=== PATIENT | male | born 1960 | race Two or more races ===

== ENCOUNTER 2024-02-04 14:53 | Outpatient (AMB) | payer MEDICAID, SELFPAY ==
[2024-02-04 15:25] VITALS: BP 142/81; PULSE 67; RESP 18; TEMP 36.6; O2SAT 97; BMI 31.5
--- NOTE | 2024-02-04 15:25 | ORTHONT_ITS ---
Vital signs 02/04/24 15:25 Height 1.57 m Height Method Stated Weight 77.734 kg Weight Measurement Method Standing Scale BMI 31.5 BP 142/81 H Blood Pressure Source Automatic Cuff Blood Pressure Location Right Upper Arm Position Sitting Respiration 18 Pulse 67 Pulse Source Monitor Temp 97.9 F Temp Source Temporal Artery Scan Pulse Oximetry (%) 97 Oxygen Delivery Method Room Air Med/Allergies Allergies & Medications Allergies No Known Allergies Allergy (Verified 02/04/24 15:31) Medication Reconciliation ibuprofen 800 mg tablet 800 mg PO TID PRN Pain 03/23/20 [History Confirmed 02/04/24] lisinopril 10 mg tablet 10 mg PO QDAY 03/23/20 [History Confirmed 02/04/24] polyethylene glycol 3350 17 gram/dose oral powder (Miralax) 17 g PO BID PRN constipation #510 grams 03/23/20 [Rx Confirmed 02/04/24] phenazopyridine 200 mg tablet (Pyridium) 200 mg PO TID PRN pain 6 doses #6 tabs 10/05/20 [Rx Confirmed 02/04/24] sulfamethoxazole 800 mg-trimethoprim 160 mg tablet (Bactrim DS) 1 tab PO Q12H #20 tabs 10/05/20 [Rx Confirmed 02/04/24] ciprofloxacin HCl 500 mg tablet 500 mg PO Q12H #20 tabs 03/01/21 [Rx Confirmed 02/04/24] ibuprofen 800 mg tablet 800 mg PO TID PRN fever or pain #30 tabs 06/21/21 [Rx Confirmed 02/04/24] albuterol sulfate 90 mcg/actuation aerosol inhaler 2 puff inhalation QID PRN shortness of breath or wheezing #8.5 grams 06/24/21 [Rx Confirmed 02/04/24] acetaminophen 650 mg tablet,extended release 650 mg PO Q8H PRN fever or pain #30 tabs 02/17/22 [Rx Confirmed 02/04/24] albuterol sulfate 90 mcg/actuation aerosol inhaler 2 puff inhalation Q6H PRN cough / wheezing #6.7 grams 02/17/22 [Rx Confirmed 02/04/24] ibuprofen 600 mg tablet 600 mg PO Q8H PRN fever or pain #30 tabs 02/17/22 [Rx Confirmed 02/04/24] inhalational spacing device (Aerochamber MV spacer) #1 ea 02/17/22 [Rx Confirmed 02/04/24] ipratropium bromide 21 mcg (0.03 %) nasal spray 2 spray intranasal BID #30 mL 02/17/22 [Rx Confirmed 02/04/24] promethazine-DM 6.25 mg-15 mg/5 mL oral syrup 5 ml PO Q6H PRN cough #120 mL 02/17/22 [Rx Confirmed 02/04/24] naproxen 500 mg tablet 500 mg PO BID PRN pain #14 tabs 06/19/22 [Rx Confirmed 02/04/24] ibuprofen 600 mg tablet 600 mg PO Q6H #30 tabs 07/16/22 [Rx Confirmed 02/04/24] ibuprofen 800 mg tablet 800 mg PO TID PRN pain #30 tabs 09/07/22 [Rx Confirmed 02/04/24] naproxen 500 mg tablet 500 mg PO BID PRN pain #30 tabs 12/06/22 [Rx Confirmed 02/04/24] ofloxacin 0.3 % eye drops 2 drp ophthalmic (eye) QID #5 mL 07/16/23 [Rx Confirmed 02/04/24] Subjective Visit Visit for: follow up visit, knee and injections Immunization / Flu Flu Vaccine in the Last 12 Months: No Flu Vaccine Exclusion Criteria: No Exclusion Criteria History of Present Illness Chief complaint: F/U KNEE INJECTIONS Patient is a pleasant 62-year-old Male with left knee pain and severe left knee arthritis. This pain has been ongoing for 1 year. The films he has are nonweightbearing. The pain is starting to affect his quality life and happiness. He wants avoid surgery and wants injections at this time. Personal History Occupation: SIMULATION SOFTWARE ENGINEER Red flag PMH: none Pain Pain level (0-10): 7 Pain duration: ALL DAY Pain location: outside (lateral) and anterior Pain quality: sharp, dull and aching Pain timing: increases with activity Associated signs & symptoms: none Ambulatory data Ambulatory device: none Treatments Improvement with previous injections: No Improvement with PT: No Improvement with NSAIDS: n/a Review of Systems Review of Systems: All systems negative unless otherwise noted in HPI. Exam Exam Patient is in no acute distress and is cooperative with the examination today. Breathing is nonlabored. Patient has a normal mood and affect. Bilateral extremities were evaluated and demonstrates sensation intact to light touch. Palpable pedal pulses are present. No significant edema is present. Bilateral hips were examined. The patient has no pain with log roll of the hips. Internal rotation to 30 degrees and external rotation to 30 degrees is painless. Negative FADIR. Right knee was examined today. The right knee is in reasonable alignment. Range of motion from 0-120 degrees. Knee is stable to varus and valgus as well as AP translation with <5mm. Patient has a negative McMurrays. There is no pain with patellofemoral compression and no crepitus noted. The knee is nontender to palpation. Left knee was examined today. The left knee is in [varus] alignment. Range of motion from [0-115] degrees. Knee is stable to varus and valgus as well as AP translation with <5mm. Patient has a [negative] McMurrays. There is [no] pain with patellofemoral compression and [no] crepitus noted. The knee is [tender] to palpation [medially]. X-rays demonstrate severe joint space narrowing medially. Assessment and Plan Problem List (1) Arthritis of left knee: Status: Acute Plan: Patient is a pleasant 62-year-old male with severe left knee arthritis. We discussed nonoperative and operative options. He would like injections. Recommend knee cortisone injections as patient would like to proceed with conservative treatment at this time. The risks and benefits of the procedure were reviewed with the patient and patient gave verbal consent to continue with the procedure. Procedure: performed by Dr. Hodge Using sterile technique the Bilateral knees were thoroughly prepped with alcohol, and approximately 1 cc of Kenalog 40 mg/mL and 4 cc of 1% lidocaine was injected into each knee without resistance into the medial tibial femoral joint space. The patient tolerated the procedure. Office Procedures GNS Level of Care Nursing/Assessment Patient Status: Established Patient Nursing Assessment/Reassesment: Medication Reconciliation, Update PMH in EMR and Vital Signs Coordination of Care: Complex Care and Chronic Disease 1-5, Education Complex Pt/Fam, Consent,records obtained, informed consent, Results/Orders obtained and Staff clarify orders Special Needs: Language special needs Established Patient Charge Established Patient Point Assignment: 95 Established Patient Point Charge: EP Level 3 (80-115) Surgical Proc/IM SQ injection Major Surgical Procedure: Yes (LEFT KNEE INJECTION) Medication Given Medication Given Medication Given: Yes Documented Dose Given: 4 Route: Infiitration Medication Given Medication Given Medication Given: Yes Documented Dose Given: 1 Route: Infiitration Office Meds Xylocaine 10 mg/mL (1 %) injection solution Performing Provider: Ruddy Hodge MD Performing Location: [facility] Administered by: Ruddy Hodge MD on 02/04/24 15:34 Dose Route Admin Location Dispensed Lot Number Expiration Date [facility] Lithopress Operator 20 mL Infiltration 20 mL [id number] 10/11/26 71334-167-64 [facility] triamcinolone acetonide 40 mg/mL suspension for injection Performing Provider: Ruddy Hodge MD Performing Location: [facility] Administered by: Ruddy Hodge MD on 02/04/24 15:34 Dose Route Admin Location Dispensed Lot Number Expiration Date [facility] Lithopress Operator 40 mg Infiltration 1 mL [id number] 08/11/25 6686-6816-35 [employer] Past Medical History Past Medical History Have you ever been diagnosed with any of the following: Neurological Problems Seizures: No Paralysis: Yes Cardiology Problems Congestive Heart Failure: No Hypertension: Yes Respiratory Problems Chronic Obstructive Pulmonary Disease (COPD): No Asthma: No Smoking: No Smoking Cessation Counseling: No Smoking Exposure: No Genital/Urinary Problems Renal Disease: No Benign Prostatic Hyperplasia: Yes Head,Eye,Nose,Throat Problems Blind: Yes Eye Prosthesis: Yes Endocrine Problems Diabetes Mellitus Type 1: No Diabetes Mellitus Type 2: No Blood Problems Sickle Cell Disease: No Other Problems Blood Transfusions: No Blood Transfusion Reaction: No Anesthesia Reactions: No
== END 2024-02-04 15:36 | disposition home or self-care (01) ==
LOC: HODSRG 14:53
PROVIDERS: Supervising Provider Orthopaedic Surgery Adult Reconstructive Orthopaedic Surgery; Visit Provider Orthopaedic Surgery Adult Reconstructive Orthopaedic Surgery
DX: M17.12 Unilateral primary osteoarthritis, left knee (principal); I10 Essential (primary) hypertension
CPT/HCPCS: 20610; 99213; J3301; J3490; G0463

== ENCOUNTER 2024-02-27 03:21 | Emergency (ER) | payer MEDICAID, SELFPAY ==
[2024-02-27 04:46] VITALS: BP 144/85; PULSE 81; RESP 18; TEMP 36.9; O2SAT 99
--- NOTE | 2024-02-27 04:53 | XR_ITS ---
Examination: CT brain head without contrast. 2-D sagittal coronal reconstructions Date and time of exam:February 27, 2024 at 0511 hrs. Indications: Right thigh pain and redness with headache today CTDI: vol (mGy):49.9 DLP: (mGycm):998 Technique: Multiple CT axial sections of the brain have been obtained, 5 mm slice thickness. Contrast has not been administered. 2-D sagittal, coronal reconstructions have been obtained Low dose protocols were performed. One or more of the following dose reduction techniques were used; automated exposure control, adjustment of the mA and/or KV according to patient size, use of iterative reconstruction technique. Findings: No significant ventricular enlargement. Atrophic left optic globe Right optic globe appears intact Retention cyst right maxillary antrum Intra-axial or extra-axial hemorrhage density is not seen. No mass effect or midline shift Basal cisterns are not remarkable. Fourth ventricle is midline. Cranial vault intact. Impression: Negative for acute hemorrhage, mass effect or midline shift Advise clinical correlation follow-up accordingly
--- NOTE | 2024-02-27 04:54 | PD.EDRME ---
Rapid Medical Screening Exam RME Arrival date/time: 02/27/24 03:21 63-year-old male presents emergency department reporting pain behind right eye that is been ongoing for 3 days. Chief Complaint: Eye Problems Time Seen by Provider: 02/27/24 04:50 Vital signs: Vital Signs Temperature 98.4 F 02/27/24 04:46 Pulse Rate 81 02/27/24 04:46 Respiratory Rate 18 02/27/24 04:46 Blood Pressure 144/85 H 02/27/24 04:46 Pulse Oximetry (%) 99 02/27/24 04:46 Oxygen Delivery Method Room Air 02/27/24 04:46 Vital signs reviewed by provider: Yes
--- NOTE | 2024-02-27 05:29 | PRELIM_ITS ---
CT scan of the head without intravenous contrast (axial sections with sagittal and coronal reformats) February 27, 2024 0511 hours Clinical history: Right eye pain Radiation Dose: Total exam DLP 998 mGy /cm No prior study is available for comparison. Findings:There is no evidence of intracranial hemorrh age, mass effect or midline shift. There are periventricular white matter hypodensities, compatible w ith chronic small vessel ischemia. There is mild volume loss. The calvarium is unremarkable. There is a small retention cyst or polyp in the right maxillary sinus. The mastoid air cells and the other vi sualized paranasal sinuses are clear. 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 Report Electronically Signed By: Jefferson Diaz 02/27/2024 5:28:39 AM [EST]
--- NOTE | 2024-02-27 06:32 | PD.EDEYE ---
ED Eye Problem RME/HPI General Chief complaint: Eye Problems Stated complaint: RIGHT EYE PAIN AND REDNESS Time Seen by Provider: 02/27/24 04:50 Source: patient, RN notes reviewed and old records reviewed Arrival date/time: 02/27/24 03:21 Mode of arrival: ambulatory Limitations: no limitations RME / HPI RME / HPI Narrative: 63yom presents to ED for 3-day history of right eye redness and irritation. No preceding injury or trauma. Patient thinks something may have blown into his eye. Denies contact lens use. No vision changes, floaters, headache or dizziness reported. No medications or treatment since symptom onset. Hx of prosthetic left eye. Of note, patient reports similar symptoms few months ago, states he was prescribed antibiotic eyedrops which relieved his symptoms. Related Data Home Medications ?Medication ?Instructions ?Recorded ?Confirmed ibuprofen 800 mg tablet 800 mg PO TID PRN Pain 03/23/20 02/04/24 lisinopril 10 mg tablet 10 mg PO QDAY 03/23/20 02/04/24 Previous Rx's ?Medication ?Instructions ?Recorded polyethylene glycol 3350 17 17 g PO BID PRN constipation #510 03/23/20 gram/dose oral powder (Miralax) grams phenazopyridine 200 mg tablet 200 mg PO TID PRN pain 6 doses #6 10/05/20 (Pyridium) tabs sulfamethoxazole 800 1 tab PO Q12H #20 tabs 10/05/20 mg-trimethoprim 160 mg tablet (Bactrim DS) ciprofloxacin HCl 500 mg tablet 500 mg PO Q12H #20 tabs 03/01/21 ibuprofen 800 mg tablet 800 mg PO TID PRN fever or pain 06/21/21 #30 tabs albuterol sulfate 90 mcg/actuation 2 puff inhalation QID PRN 06/24/21 aerosol inhaler shortness of breath or wheezing #8.5 grams acetaminophen 650 mg 650 mg PO Q8H PRN fever or pain 02/17/22 tablet,extended release #30 tabs albuterol sulfate 90 mcg/actuation 2 puff inhalation Q6H PRN cough / 02/17/22 aerosol inhaler wheezing #6.7 grams ibuprofen 600 mg tablet 600 mg PO Q8H PRN fever or pain 02/17/22 #30 tabs inhalational spacing device #1 ea 02/17/22 (Aerochamber MV spacer) ipratropium bromide 21 mcg (0.03 2 spray intranasal BID #30 mL 02/17/22 %) nasal spray promethazine-DM 6.25 mg-15 mg/5 mL 5 ml PO Q6H PRN cough #120 mL 02/17/22 oral syrup naproxen 500 mg tablet 500 mg PO BID PRN pain #14 tabs 06/19/22 ibuprofen 600 mg tablet 600 mg PO Q6H #30 tabs 07/16/22 ibuprofen 800 mg tablet 800 mg PO TID PRN pain #30 tabs 09/07/22 naproxen 500 mg tablet 500 mg PO BID PRN pain #30 tabs 12/06/22 ofloxacin 0.3 % eye drops 2 drp ophthalmic (eye) QID #5 mL 07/16/23 ofloxacin 0.3 % eye drops 2 drp ophthalmic (eye) QID 7 days 02/27/24 #5 mL Allergies Allergy/AdvReac Type Severity Reaction Status Date / Time No Known Allergies Allergy Verified 02/27/24 03:23 Review of Systems Review of Systems Systems Reviewed: All systems reviewed, normal except as documented Constitutional Constitutional: Denies headache(s) Eyes Eyes: Denies blurry vision, Denies eye discharge, Reports irritation, Denies seeing flashes and Denies spots in vision Comments: Reports redness ENT Ears, Nose, Mouth, and Throat: Denies dizziness and Denies headache(s) Neurologic Neurologic: Denies dizziness and Denies headache(s) Past Medical History Past Medical History CARDIAC: Positive Hypertension GENITOURINARY: Positive Benign Prostatic Hyperplasia Surgical History SURGICAL: Positive Joint Replacement (Left knee) Social History SMOKING STATUS: Never smoker SUBSTANCE USE: does not use ALCOHOL: Never ED Exam General Limitations: Present no limitations General appearance: Present alert and in no apparent distress Head Head exam: Present atraumatic and normocephalic Eye Eye exam: Present PERRL, EOMI and conjunctival injection (Right); Absent periorbital swelling or periorbital tenderness ENT ENT exam: Present normal exam and mucous membranes moist Neck Neck exam: Present normal inspection and full ROM Chest Chest inspection: Present normal inspection and symmetric chest wall rise Respiratory Respiratory exam: Present normal lung sounds bilaterally; Absent respiratory distress Cardiovascular Cardiovascular exam: Present regular rate and normal rhythm Extremities Exam Extremities exam: Present normal inspection and full ROM Neurological Exam Neurological exam: Present alert and oriented X3 Psychiatric Psychiatric exam: Present normal affect and normal mood Skin Skin exam: Present warm, dry, intact and normal color Course Quality Measures none Orders Category Date Time Status Visual Acuity X1 Care 02/27/24 04:58 Completed Aldridge Lamp to Bedside X1 Care 02/27/24 06:[address] head/brain wo con Stat Exams 02/27/24 04:53 Completed Fluorescein Sodium [[id number]] Med 02/27/24 06:32 Discontinued 1 mg RIGHT EYE X1 ONE TETRACAINE Op Francoise 0.5% [Pontocaine Op Francoise 0.5%] Med 02/27/24 06:32 Discontinued 1 drop RIGHT EYE X1 ONE Vital Signs Vital signs: Vital Signs Temperature 98.4 F 02/27/24 04:46 Pulse Rate 81 02/27/24 04:46 Respiratory Rate 18 02/27/24 04:46 Blood Pressure 144/85 H 02/27/24 04:46 Pulse Oximetry (%) 99 02/27/24 04:46 Oxygen Delivery Method Room Air 02/27/24 04:46 Procedures -ED Aldridge Lamp Exam Right eye: Flourescein uptake:: No Aldridge Lamp Findings: Normal Additional comments: No corneal abrasion or foreign body noted Eye MDM Narrative MDM Narrative:: 63yom presents to ED for 3-day history of right eye redness and irritation. No preceding injury or trauma. Patient thinks something may have blown into his eye. Denies contact lens use. No vision changes, floaters, headache or dizziness reported. No medications or treatment since symptom onset. Hx of prosthetic left eye. Of note, patient reports similar symptoms few months ago, states he was prescribed antibiotic eyedrops which relieved his symptoms. Will treat for conjunctivitis. No fluorescein uptake on Aldridge lamp exam. Recommended close follow-up with ophthalmology if symptoms persist or worsen. Stable for discharge, RTED precautions given. Patient data External records reviewed:: [facility] previous records (01/02/2024 ED visit for dysuria) Clinical information provided by:: patient Social determinants that could affect healthcare access:: other (specify) (Poor access to healthcare, acculturation difficulty) Patient has the following chronic illnesses:: Hypertension, BPH How is presenting disease/condition affected by chronic disease/condition?: uneffected by Evaluation data The following diagnostics were reviewed and interpreted by me:: radiology exam(s) Lab and/or radiology exams considered but not ordered:: None Interpretation Summary: CT head: No acute process per my read Medications / Prescriptions Medications or Prescriptions considered but not ordered:: None Medication administrations:: Medication Administration History Discontinued Medications Fluorescein Sodium (Fluorescein Sod 1 Mg Strp) 1 mg RIGHT EYE X1 ONE Stop: 02/27/24 06:33 Last Admin: 02/27/24 07:02 Dose: 1 mg Documented By: CVL Comments: used by ZAINAB Tetracaine HCl (Tetracaine Pf Op Francoise 0.5% 4 Ml Drpette) 1 drop RIGHT EYE X1 ONE Stop: 02/27/24 06:33 Last Admin: 02/27/24 07:02 Dose: Not Given Documented By: CVL Non-Admin Reason: Medication Not Available Above medications administered in ED Consultations Consultation(s) initiated? (list below): No Diagnosis Eye Problem Differential Diagnosis: corneal abrasion, conjunctivitis, acute iritis, periorbital cellulitis and subconjunctival hemorrhage Most likely diagnosis given after review of the tests above:: Right eye conjunctivitis Admission Indicated Admission indicated?: not indicated Admission Request Was there a request for admission?: No Disposition Plan Disposition Plan: Discharge Discharge Attestation Discharge Attestation: The patient and all family members were given an opportunity to ask questions and understood the discharge instructions. Discharge instructions specifically effects, indications for sooner follow up or return to the emergency department, and the expected course of current diagnosis. Patient condition: Stable Discharge Plan Plan Patient Disposition: HOME (Self Care) Patient condition on transfer: Stable Prescriptions/Referrals Prescriptions/Med Rec: New ofloxacin 0.3 % drops 2 drp ophthalmic (eye) QID 7 Days Qty: 5 0RF No Action ibuprofen [Motrin] 800 mg Tablet 800 mg PO TID PRN (Reason: Pain) lisinopril 10 mg Tablet 10 mg PO QDAY polyethylene glycol 3350 [Miralax] 17 gram/dose powder 17 g PO BID PRN (Reason: constipation) Qty: 510 0RF ciprofloxacin HCl 500 mg tablet 500 mg PO Q12H Qty: 20 0RF albuterol sulfate 90 mcg/actuation HFA aerosol inhaler 2 puff inhalation QID PRN (Reason: shortness of breath or wheezing) Qty: 8.5 0RF phenazopyridine [Pyridium] 200 mg tablet 200 mg PO TID PRN (Reason: pain) Qty: 6 0RF sulfamethoxazole-trimethoprim [Bactrim DS] 800-160 mg tablet 1 tab PO Q12H Qty: 20 0RF ibuprofen 800 mg tablet 800 mg PO TID PRN (Reason: fever or pain) Qty: 30 0RF naproxen 500 mg tablet 500 mg PO BID PRN (Reason: pain) Qty: 14 0RF ibuprofen 800 mg tablet 800 mg PO TID PRN (Reason: pain) Qty: 30 0RF naproxen 500 mg tablet 500 mg PO BID PRN (Reason: pain) Qty: 30 0RF ofloxacin 0.3 % drops 2 drp ophthalmic (eye) QID Qty: 5 0RF acetaminophen 650 mg tablet extended release 650 mg PO Q8H PRN (Reason: fever or pain) Qty: 30 0RF Rx Instructions: swallow whole; do not chew/break/dissolve/open (DME) Aerochamber MV Spacer See Dose Instructions .ROUTE .MEDSUPPLY Qty: 1 0RF Dose Instruction: As directed Rx Instructions: As directed albuterol sulfate 90 mcg/actuation HFA aerosol inhaler 2 puff INH Q6H PRN (Reason: cough / wheezing ) Qty: 6.7 0RF Rx Instructions: administer with spacer promethazine-DM 6.25-15 mg/5 mL syrup 5 ml PO Q6H PRN (Reason: cough) Qty: 120 0RF ibuprofen 600 mg tablet 600 mg PO Q8H PRN (Reason: fever or pain) Qty: 30 0RF ipratropium bromide 21 mcg (0.03 %) spray,non-aerosol 2 spray INTRANASAL BID Qty: 30 0RF Rx Instructions: administer into each nostril ibuprofen 600 mg tablet 600 mg PO Q6H Qty: 30 0RF Problem List Clinical Impression: Bacterial conjunctivitis Patient/Caregiver Discharge Instructions Education Materials: ED Conjunctivitis, Bacterial Print Language: Citizen [place] Stand Alone Forms: Jacquelyn Award Info., Patient Portal Info Letter PA/[employer] Supervising Physician PA/[employer] Supervising Physician: Berenice
[2024-02-27] MEDS: FLUORESCEIN SOD 1 MG STRP RIGHT EYE (07:02)
[2024-02-27 07:03] VITALS: RESP 18
== END 2024-02-27 07:05 | disposition home or self-care (01) ==
LOC: SERX 07:01
PROVIDERS: Emergency Provider Emergency Medicine; PCP Nurse Practitioner Family
DX: H10.89 Other conjunctivitis (principal); R51.9 Headache, unspecified
CPT/HCPCS: 70450; 99284

== ENCOUNTER 2024-05-09 14:39 | Outpatient (AMB) | payer MEDICAID, SELFPAY ==
--- NOTE | 2024-05-09 15:01 | PD.ORTHCLVIS ---
Med/Allergies Allergies & Medications Allergies No Known Allergies Allergy (Verified 02/27/24 03:23) Exam Exam Patient is in no acute distress and is cooperative with the examination today. Breathing is nonlabored. Patient has a normal mood and affect. Bilateral extremities were evaluated and demonstrates sensation intact to light touch. Palpable pedal pulses are present. No significant edema is present. Bilateral hips were examined. The patient has no pain with log roll of the hips. Internal rotation to 30 degrees and external rotation to 30 degrees is painless. Negative FADIR. Right knee was examined today. The right knee is in reasonable alignment. Range of motion from 0-120 degrees. Knee is stable to varus and valgus as well as AP translation with <5mm. Patient has a negative McMurrays. There is no pain with patellofemoral compression and no crepitus noted. The knee is nontender to palpation. Left knee was examined today. The left knee is in [varus] alignment. Range of motion from [0-115] degrees. Knee is stable to varus and valgus as well as AP translation with <5mm. Patient has a [negative] McMurrays. There is [no] pain with patellofemoral compression and [no] crepitus noted. The knee is [tender] to palpation [medially]. X-rays demonstrate severe joint space narrowing medially. Assessment and Plan Problem List (1) Arthritis of left knee: Status: Acute Plan: Patient is a pleasant 62-year-old male with severe left knee arthritis. We discussed nonoperative and operative options. He would like injections As he has done well in the past with them. Recommend knee cortisone injections as patient would like to proceed with conservative treatment at this time. The risks and benefits of the procedure were reviewed with the patient and patient gave verbal consent to continue with the procedure. Procedure: performed by Dr. Hodge Using sterile technique the Bilateral knees were thoroughly prepped with alcohol, and approximately 1 cc of Kenalog 40 mg/mL and 4 cc of 1% lidocaine was injected into each knee without resistance into the medial tibial femoral joint space. The patient tolerated the procedure. Questionairres Past Medical History Past Medical History Have you ever been diagnosed with any of the following: Neurological Problems Seizures: No Paralysis: Yes Cardiology Problems Congestive Heart Failure: No Hypertension: Yes Respiratory Problems Chronic Obstructive Pulmonary Disease (COPD): No Asthma: No Smoking: No Smoking Cessation Counseling: No Smoking Exposure: No Genital/Urinary Problems Renal Disease: No Benign Prostatic Hyperplasia: Yes Head,Eye,Nose,Throat Problems Blind: Yes Eye Prosthesis: Yes Endocrine Problems Diabetes Mellitus Type 1: No Diabetes Mellitus Type 2: No Blood Problems Sickle Cell Disease: No Other Problems Blood Transfusions: No Blood Transfusion Reaction: No Anesthesia Reactions: No Subjective Immunization / Flu Flu Vaccine in the Last 12 Months: Yes Flu Vaccine Exclusion Criteria: Already Received History of Present Illness Chief complaint: Bilateral knee pain Patient is a 63-year-old male with bilateral knee pain worse on the left. He would like cortisone injections today. Review of Systems Review of Systems: All systems negative unless otherwise noted in HPI.
[2024-05-09 15:30] VITALS: BP 131/85; PULSE 63; RESP 19; TEMP 36.7
== END 2024-05-09 15:14 | disposition home or self-care (01) ==
LOC: HODSRG 14:39
PROVIDERS: Supervising Provider Orthopaedic Surgery Adult Reconstructive Orthopaedic Surgery; Visit Provider Orthopaedic Surgery Adult Reconstructive Orthopaedic Surgery
DX: M17.0 Bilateral primary osteoarthritis of knee (principal); I10 Essential (primary) hypertension
CPT/HCPCS: 20610; 99213; J3301; J3490; G0463

== ENCOUNTER 2024-08-08 13:42 | Outpatient (AMB) | payer MEDICAID, SELFPAY ==
[2024-08-08 13:54] VITALS: BP 119/81; PULSE 61; RESP 18; TEMP 36.3; O2SAT 97; BMI 30.5
--- NOTE | 2024-08-08 13:54 | PD.ORTHCLVIS ---
Vital signs 08/08/24 13:54 Height 1.57 m Height Method Stated Weight 75.296 kg Weight Measurement Method Standing Scale BMI 30.5 BP 119/81 Blood Pressure Source Automatic Cuff Blood Pressure Location Right Upper Arm Position Sitting Respiration 18 Pulse 61 Pulse Source Monitor Temp 97.3 F Temp Source Temporal Artery Scan Pulse Oximetry (%) 97 Oxygen Delivery Method Room Air Med/Allergies Allergies & Medications Allergies No Known Allergies Allergy (Verified 08/08/24 13:55) Medication Reconciliation ibuprofen 800 mg tablet 800 mg PO TID PRN Pain 03/23/20 [History Confirmed 08/08/24] lisinopril 10 mg tablet 10 mg PO QDAY 03/23/20 [History Confirmed 08/08/24] polyethylene glycol 3350 17 gram/dose oral powder (Miralax) 17 g PO BID PRN constipation #510 grams 03/23/20 [Rx Confirmed 08/08/24] phenazopyridine 200 mg tablet (Pyridium) 200 mg PO TID PRN pain 6 doses #6 tabs 10/05/20 [Rx Confirmed 08/08/24] sulfamethoxazole 800 mg-trimethoprim 160 mg tablet (Bactrim DS) 1 tab PO Q12H #20 tabs 10/05/20 [Rx Confirmed 08/08/24] ciprofloxacin HCl 500 mg tablet 500 mg PO Q12H #20 tabs 03/01/21 [Rx Confirmed 08/08/24] ibuprofen 800 mg tablet 800 mg PO TID PRN fever or pain #30 tabs 06/21/21 [Rx Confirmed 08/08/24] albuterol sulfate 90 mcg/actuation aerosol inhaler 2 puff inhalation QID PRN shortness of breath or wheezing #8.5 grams 06/24/21 [Rx Confirmed 08/08/24] acetaminophen 650 mg tablet,extended release 650 mg PO Q8H PRN fever or pain #30 tabs 02/17/22 [Rx Confirmed 08/08/24] albuterol sulfate 90 mcg/actuation aerosol inhaler 2 puff inhalation Q6H PRN cough / wheezing #6.7 grams 02/17/22 [Rx Confirmed 08/08/24] ibuprofen 600 mg tablet 600 mg PO Q8H PRN fever or pain #30 tabs 02/17/22 [Rx Confirmed 08/08/24] inhalational spacing device (Aerochamber MV spacer) #1 ea 02/17/22 [Rx Confirmed 08/08/24] ipratropium bromide 21 mcg (0.03 %) nasal spray 2 spray intranasal BID #30 mL 02/17/22 [Rx Confirmed 08/08/24] promethazine-DM 6.25 mg-15 mg/5 mL oral syrup 5 ml PO Q6H PRN cough #120 mL 02/17/22 [Rx Confirmed 08/08/24] naproxen 500 mg tablet 500 mg PO BID PRN pain #14 tabs 06/19/22 [Rx Confirmed 08/08/24] ibuprofen 600 mg tablet 600 mg PO Q6H #30 tabs 07/16/22 [Rx Confirmed 08/08/24] ibuprofen 800 mg tablet 800 mg PO TID PRN pain #30 tabs 09/07/22 [Rx Confirmed 08/08/24] naproxen 500 mg tablet 500 mg PO BID PRN pain #30 tabs 12/06/22 [Rx Confirmed 08/08/24] ofloxacin 0.3 % eye drops 2 drp ophthalmic (eye) QID #5 mL 07/16/23 [Rx Confirmed 08/08/24] Exam Exam Patient is in no acute distress and is cooperative with the examination today. Breathing is nonlabored. Patient has a normal mood and affect. Bilateral extremities were evaluated and demonstrates sensation intact to light touch. Palpable pedal pulses are present. No significant edema is present. Bilateral hips were examined. The patient has no pain with log roll of the hips. Internal rotation to 30 degrees and external rotation to 30 degrees is painless. Negative FADIR. Right knee was examined today. The right knee is in reasonable alignment. Range of motion from 0-120 degrees. Knee is stable to varus and valgus as well as AP translation with <5mm. Patient has a negative McMurrays. There is no pain with patellofemoral compression and no crepitus noted. The knee is nontender to palpation. Left knee was examined today. The left knee is in [varus] alignment. Range of motion from [0-115] degrees. Knee is stable to varus and valgus as well as AP translation with <5mm. Patient has a [negative] McMurrays. There is [no] pain with patellofemoral compression and [no] crepitus noted. The knee is [tender] to palpation [medially]. X-rays demonstrate severe joint space narrowing medially. Assessment and Plan Problem List (1) Arthritis of left knee: Status: Acute Plan: Patient is a pleasant 62-year-old male with severe left knee arthritis. We discussed nonoperative and operative options. He would like injections As he has done well in the past with them. Recommend knee cortisone injections as patient would like to proceed with conservative treatment at this time. The risks and benefits of the procedure were reviewed with the patient and patient gave verbal consent to continue with the procedure. Procedure: performed by Dr. Hodge Using sterile technique the Bilateral knees were thoroughly prepped with alcohol, and approximately 1 cc of Kenalog 40 mg/mL and 4 cc of 1% lidocaine was injected into each knee without resistance into the medial tibial femoral joint space. The patient tolerated the procedure. Office Procedures GNS Level of Care Nursing/Assessment Patient Status: Established Patient Nursing Assessment/Reassesment: Medication Reconciliation, Update PMH in EMR and Vital Signs Coordination of Care: Complex Care and Chronic Disease 1-5, Consent,records obtained, informed consent, Education Simp Pt/Fam, Results/Orders obtained and Staff clarify orders Special Needs: Language special needs (WELSH ) Established Patient Charge Established Patient Point Assignment: 90 Established Patient Point Charge: EP Level 3 (80-115) Surgical Proc/IM SQ injection Major Surgical Procedure: Yes (BILATERAL KNEE INJECTIONS ) Medication Given Medication Given Medication Given: Yes Documented Dose Given: 8 Route: Infiitration Medication Given Medication Given Medication Given: Yes Documented Dose Given: 2 Route: Infiitration Office Meds Xylocaine 10 mg/mL (1 %) injection solution Performing Provider: Ruddy Hodge MD Performing Location: [facility] Administered by: Ruddy Hodge MD on 08/08/24 14:21 Dose Route Admin Location Dispensed Lot Number Expiration Date [facility] [employer] 40 mL Infiltration KNEE 40 mL [id number] 06/14/23 06863-054-17 [facility] triamcinolone acetonide 40 mg/mL suspension for injection Performing Provider: Ruddy Hdoge MD Performing Location: [facility] Administered by: Ruddy Hodge MD on 08/08/24 14:21 Dose Route Admin Location Dispensed Lot Number Expiration Date [facility] T[employer] 80 mg intra-articular KNEE 2 mL [id number] 02/12/26 4443-8486-60 TESSIE PARENTERAL MA Intake Visit Data Collection New Patient or Established: Established Patient (seen at [facility] within 3 years) Reason for Visit:: FU 3 MNTH LT KNEE INJECTION Seen by Clinical Staff ONLY (RN/MA): No Cash Control Specialist Required: Yes PCP or OBGYN visit in last 3 months: Yes Hx Now: No Do You Feel Safe at Home: Yes Authorities Contacted: N/A Questionairres Past Medical History Past Medical History Have you ever been diagnosed with any of the following: Neurological Problems Seizures: No Paralysis: Yes Cardiology Problems Congestive Heart Failure: No Hypertension: Yes Respiratory Problems Chronic Obstructive Pulmonary Disease (COPD): No Asthma: No Smoking: No Smoking Cessation Counseling: No Smoking Exposure: No Genital/Urinary Problems Renal Disease: No Benign Prostatic Hyperplasia: Yes Head,Eye,Nose,Throat Problems Blind: Yes Eye Prosthesis: Yes Endocrine Problems Diabetes Mellitus Type 1: No Diabetes Mellitus Type 2: No Blood Problems Sickle Cell Disease: No Other Problems Blood Transfusions: No Blood Transfusion Reaction: No Anesthesia Reactions: No Subjective Visit Visit for: follow up visit and knee (LEFT KNEE ) Immunization / Flu Flu Vaccine in the Last 12 Months: No Flu Vaccine Exclusion Criteria: Refused by Patient History of Present Illness Chief complaint: Bilateral knee pain Patient is a 63-year-old male with bilateral knee pain worse on the left. He would like cortisone injections today. The last injections have workedfor 3 months Personal History Red flag PMH: none Pain Pain level (0-10): 7 Pain duration: 1 WEEK Pain location: anterior Pain quality: sharp Pain timing: night Associated signs & symptoms: numbness, weakness and stiffness Ambulatory data Ambulatory device: none Walking distance (minutes): 10 Treatments Number of previous injections: 2 Improvement with previous injections: Yes Number of Physical Therapy sessions: 0 Improvement with NSAIDS: n/a Review of Systems Review of Systems: All systems negative unless otherwise noted in HPI.
== END 2024-08-08 14:11 | disposition home or self-care (01) ==
PROVIDERS: Supervising Provider Orthopaedic Surgery Adult Reconstructive Orthopaedic Surgery; Visit Provider Orthopaedic Surgery Adult Reconstructive Orthopaedic Surgery
DX: M17.12 Unilateral primary osteoarthritis, left knee (principal); I10 Essential (primary) hypertension
CPT/HCPCS: 20610; 99213; J3301; J3490; G0463

== ENCOUNTER 2024-08-24 16:50 | Emergency (ER) | payer MEDICAID, SELFPAY ==
[2024-08-24 17:27] VITALS: BP 136/63; PULSE 79; RESP 18; TEMP 36.6; O2SAT 98; BMI 33.3
--- NOTE | 2024-08-24 18:32 | XR_ITS ---
Examination: CT abdomen with intravenous contrast CT pelvis with intravenous contrast 2-D coronal reconstructions 2-D sagittal reconstructions Date and time of exam:August 24, 20240 hours Comparison March 23, 2020 INDICATIONS: Onset of left lower abdominal pain today. CTDI: vol (mGy) 7.7 DLP: (mGycm) 451 Technique: Multiple axial sections of the abdomen and pelvis have been obtained. 64 slice high-resolution scanner used. 3 mm axial sections have been obtained, post intravenous injection 60 cc [id number] 2-D sagittal, coronal reconstructions obtained. Low dose protocols were performed. One or more of the following dose reduction techniques were used; automated exposure control, adjustment of the mA and/or KV according to patient size, use of iterative reconstruction technique. Findings: No focal liver or splenic lesions No gallstones No pancreatic or adrenal mass Moderate renal parenchymal scar formation no renal or ureteral calculi Aorta normal size Normal appendix No bowel obstruction Mild edema in the mesentery axial image 116 Colonic diverticulosis, no diverticulitis Mild prostatomegaly Urinary bladder intact intact osseous structures IMPRESSION: Normal appendix Mild edema in the mesentery, consider mild inflammation of the mesenteric fat No abdominal or pelvic abscess Colonic diverticulosis, no diverticulitis
--- NOTE | 2024-08-24 18:33 | PD.EDRME ---
Rapid Medical Screening Exam RME Arrival date/time: 08/24/24 16:50 63M with history of HTN and BPH presents to ED with 3 days of LLQ pain and N/V. Patient denies dysuria and testicular/genital pain. Chief Complaint: General Adult/Misc Complain Time Seen by Provider: 08/24/24 17:54 Vital signs: Vital Signs Temperature 98 F 08/24/24 17:27 Pulse Rate 79 08/24/24 17:27 Respiratory Rate 18 08/24/24 17:27 Blood Pressure 136/63 H 08/24/24 17:27 Pulse Oximetry (%) 98 08/24/24 17:27 Oxygen Delivery Method Room Air 08/24/24 17:27
[2024-08-24 19:08] LABS: Collection Type, Urine Clean Catch
[2024-08-24 19:12] VITALS: BP 161/85; PULSE 57; RESP 16; O2SAT 99
[2024-08-24 19:16] LABS: Basophils % (Auto) 1 % (0-2.5); Eosinophils # (Auto) 0.1 Thou/mm3 (0.0-0.5); Eosinophils % (Auto) 1 % (0-10); Hematocrit 35.1 % (41.0-53.0); Hemoglobin 11.8 g/dL (13.5-16.0); Immature Granulocytes % (Auto) 0 % (0-0); Immature Granulocytes Auto 0.01 Thou/mm3 (0.00-0.00); Lymphocytes # (Auto) 1.6 Thou/mm3 (1.0-4.8); Lymphocytes % (Auto) 28 % (10-50); Mean Corpuscular HGB Conc 33.6 g/dl (31.0-37.0); Mean Corpuscular Hemoglobin 29.1 pg (25.0-35.0); Mean Corpuscular Volume 87 fL (80-100); Monocytes # (Auto) 0.5 Thou/mm3 (0.0-0.8); Monocytes % (Auto) 9 % (0-12); Neutrophils # (Auto) 3.5 Thou/mm3 (1.8-7.7); Neutrophils % (Auto) 62 % (37-80); Nucleated Red Blood Cell % 0 /100 WBC (0); Platelet Count 165 Thou/mm3 (140-440); RDW Standard Deviation 39.5 fL (35.1-43.9); Red Blood Count 4.06 Miln/mm3 (4.50-5.90); White Blood Count 5.7 Thou/mm3 (3.8-10.6)
[2024-08-24 19:27] LABS: Bacteria,Urine Rare; Bilirubin,Urine Negative (Negative); Blood,Urine Trace (Negative); Clarity,Urine Clear (Clear/Hazy); Color,Urine Lt-Yellow (Lt Yel-Yel); Culture Indicated,Urine Not Indicated; Glucose, Urine Negative (Negative); Ketones,Urine Negative (Negative); Leukocyte Esterase,Urine Negative (Negative); Nitrite,Urine Negative (Negative); Protein,Urine Trace (Neg - Trace); RBC,Urine 6 /hpf (0-3); Specific Gravity,Urine 1.032 (1.001-1.035); Squamous Epithelial Cell,Urine < 1 /hpf (0-5); Urobilinogen,Urine Negative mg/dL (0.0-1.0); WBC,Urine 3 /hpf (0-5)
[2024-08-24 19:33] LABS: Sperm,Urine Present
--- NOTE | 2024-08-24 19:34 | EDNOTE_ITS ---
<Statement entered by Carolyn Basilio MD - 08/25/24 18:28> As co-signing physician, I was present and available for consult prn. I concur with the plan and care as documented by the midlevel provider. ED General RME/HPI General Chief complaint: General Adult/Misc Complain Stated complaint: PAIN IN PRIVATE PARTS FROM [place] DOWN X3DAY Time Seen by Provider: 08/24/24 17:54 Arrival date/time: 08/24/24 16:50 RME / HPI RME / HPI narrative: 63M with history of HTN and BPH presents to ED with 3 days of LLQ pain and N/V. Patient denies dysuria and testicular/genital pain. Pain is described as dull ache, severity moderate. Denies any fever. Denies any other complaints no medications taken prior to arrival. Related Data Home Medications ?Medication ?Instructions ?Recorded ?Confirmed ibuprofen 800 mg tablet 800 mg PO TID PRN Pain 03/2308/08/24 lisinopril 10 mg tablet 10 mg PO QDAY 03/23/2008/08 Previous Rx's ?Medication ?Instructions ?Recorded polyethylene glycol 3350 17 17 g PO BID PRN constipati on #510 03/23/20 gram/dose oral powder (Miralax) grams phenazopyridine 200 mg tablet 200 mg PO TID PRN pain 6 doses #6 10/05/20 (Pyridium) tabs sulfamethoxazole 800 1 tab PO Q12H #20 tabs 10/05 mg-trimethoprim 160 mg tablet (Bactrim DS) ciprofloxacin HCl 500 mg tablet 500 mg PO Q12H #20 tab s 03/01/21 ibuprofen 800 mg tablet 800 mg PO TID PRN fever or p ain 06/21/21 #30 tabs albuterol sulfate 90 mcg/actuation 2 puff inhalation Q ID PRN 06/24/21 aerosol inhaler shortness of breath or wheez ing #8.5 grams acetaminophen 650 mg 650 mg PO Q8H PRN fever or p ain 02/17/22 tablet,extended release #30 tabs albuterol sulfate 90 mcg/actuation 2 puff inhalation Q 6H PRN cough / 02/17/22 aerosol inhaler wheezing #6.7 grams ibuprofen 600 mg tablet 600 mg PO Q8H PRN fever or p ain 02/17/22 #30 tabs inhalational spacing device #1 ea 02/17/22 (Aerochamber MV spacer) ipratropium bromide 21 mcg (0.03 2 spray intranasal BI D #30 mL 02/17/22 %) nasal spray promethazine-DM 6.25 mg-15 mg/5 mL 5 ml PO Q6H PRN cou gh #120 mL 02/17/22 oral syrup naproxen 500 mg tablet 500 mg PO BID PRN pain #14 t abs 06/19/22 ibuprofen 600 mg tablet 600 mg PO Q6H #30 tabs 07/16 ibuprofen 800 mg tablet 800 mg PO TID PRN pain #30 t abs 09/07/22 naproxen 500 mg tablet 500 mg PO BID PRN pain #30 t abs 12/06/22 ofloxacin 0.3 % eye drops 2 drp ophthalmic (eye) QID # 5 mL 07/16/23 ibuprofen 800 mg tablet 800 mg PO Q8H PRN pain #30 t abs 08/24/24 polyethylene glycol 3350 17 4 g PO QDAY PRN constipati on #238 08/24/24 gram/dose oral powder (Miralax) grams Allergies Allergy/AdvReac Type Severity Reaction Status Date / Time No Known Allergies Allergy Verified 08/24/24 16:54 Review of Systems Review of Systems Narrative Review of Systems: Review of system reviewed and within normal limits except mentioned in HPI ED Exam Narrative Physical exam: VITAL SIGNS: Reviewed. GENERAL APPEARANCE: Alert and interactive, follows commands, no acute distress, HEAD AND FACE: Non-traumatic. ENT: PERRL, pink conjunctivitis, eyelid no trauma, Mucous membrane moist. NECK: Supple, nontender, no nuchal rigidity. CHEST: No tenderness, no crepitus, no paradoxical movement, no retractions. LUNGS: Clear, well ventilated, symmetric, no rales, no wheezing, no ronchi, no stridor, good breath sounds bilaterally. HEART: Regular rate, regular rhythm, no murmur, no gallops. ABDOMEN: Soft, positive bowel sounds, nondistended, no guarding, left lower quadrant tenderness, no rebound, no masses, RECTAL: Deferred. GENITAL: Deferred. NEUROLOGICAL: Gross motor function intact sensory function intact, Appropriate for age. MUSCULOSKELETAL: low back nontender, full range of motion. EXTREMITIES: Nontender, full range of motion. SKIN: Color pink, dry, no rash, no lacerations, no abrasions, no contusions. LYMPHATICS: Deferred. Course Quality Measures none Orders Category Date Time Status CT Screening NOW Care 08/24/24 18:32 Active Insert IV NOW Care 08/24/24 18:[address] abdomen pelvis w con Stat Exams 08/24/24 18:32 Completed CBC Stat Lab 08/24/24 18:44 Completed CMP [Comprehensive Metabolic Panel] Stat Lab 08/24/24 18:44 Completed Lipase Stat Lab 08/24/24 18:44 Completed Urinalysis, C/S if Indicated Stat Lab 08/24/24 19:02 Completed Ibuprofen Tab [Motrin Tab] Med 08/24/24 22:52 Discontinued 800 mg PO X1 ONE Magnesium Citrate Liqd [Citrate of Magnesia Liqd] Med 08/24/24 22:52 Discontinued 300 ml PO X1 ONE Vital Signs Vital signs: Vital Signs Temperature 98 F 08/24/24 17:27 Pulse Rate 79 08/24/24 17:27 Respiratory Rate 18 08/24/24 17:27 Blood Pressure 136/63 H 08/24/24 17:27 Pulse Oximetry (%) 98 08/24/24 17:27 Oxygen Delivery Method Room Air 08/24/24 17:27 Discharge Plan Plan Patient Disposition: HOME (Self Care) Discharge Disposition comment: Stable Prescriptions/Referrals Prescriptions/Med Rec: New ibuprofen 800 mg tablet 800 mg PO Q8H PRN (Reason: pain) Qty: 30 0RF polyethylene glycol 3350 [Miralax] 17 gram/dose powder 4 g PO QDAY PRN (Reason: constipation) Qty: 238 0RF No Action lidocaine HCl [Xylocaine] 10 mg/mL (1 %) solution 20 ml Infiltration X1 Qty: 20 0RF triamcinolone acetonide 40 mg/mL suspension 40 mg IM ONCE Qty: 1 0RF ibuprofen [Motrin] 800 mg Tablet 800 mg PO TID PRN (Reason: Pain) lisinopril 10 mg Tablet 10 mg PO QDAY polyethylene glycol 3350 [Miralax] 17 gram/dose powder 17 g PO BID PRN (Reason: constipation) Qty: 510 0RF ciprofloxacin HCl 500 mg tablet 500 mg PO Q12H Qty: 20 0RF albuterol sulfate 90 mcg/actuation HFA aerosol inhaler 2 puff inhalation QID PRN (Reason: shortness of breath or wheezing) Qty: 8.5 0RF phenazopyridine [Pyridium] 200 mg tablet 200 mg PO TID PRN (Reason: pain) Qty: 6 0RF sulfamethoxazole-trimethoprim [Bactrim DS] 800-160 mg tablet 1 tab PO Q12H Qty: 20 0RF ibuprofen 800 mg tablet 800 mg PO TID PRN (Reason: fever or pain) Qty: 30 0RF naproxen 500 mg tablet 500 mg PO BID PRN (Reason: pain) Qty: 14 0RF ibuprofen 800 mg tablet 800 mg PO TID PRN (Reason: pain) Qty: 30 0RF naproxen 500 mg tablet 500 mg PO BID PRN (Reason: pain) Qty: 30 0RF ofloxacin 0.3 % drops 2 drp ophthalmic (eye) QID Qty: 5 0RF acetaminophen 650 mg tablet extended release 650 mg PO Q8H PRN (Reason: fever or pain) Qty: 30 0RF Rx Instructions: swallow whole; do not chew/break/dissolve/open (DME) Aerochamber MV Spacer See Dose Instructions .ROUTE .MEDSUPPLY Qty: 1 0RF Dose Instruction: As directed Rx Instructions: As directed albuterol sulfate 90 mcg/actuation HFA aerosol inhaler 2 puff INH Q6H PRN (Reason: cough / wheezing ) Qty: 6.7 0RF Rx Instructions: administer with spacer promethazine-DM 6.25-15 mg/5 mL syrup 5 ml PO Q6H PRN (Reason: cough) Qty: 120 0RF ibuprofen 600 mg tablet 600 mg PO Q8H PRN (Reason: fever or pain) Qty: 30 0RF ipratropium bromide 21 mcg (0.03 %) spray,non-aerosol 2 spray INTRANASAL BID Qty: 30 0RF Rx Instructions: administer into each nostril ibuprofen 600 mg tablet 600 mg PO Q6H Qty: 30 0RF Referrals: No Primary/Family,Physician [Primary Care Provider] - In 1 week Problem List Clinical Impression: Constipation, Abdominal pain Patient/Caregiver Discharge Instructions Discharge Activity: activity as tolerated Education Materials: Abdominal Pain, Treating Constipation Additional Instructions: Thank you for the opportunity for serving you today. You are stable for discharged . You are advised to: Follow-up with your PCP in 1 to 2 days Return to ED for worsening of symptoms Increase oral fluids Take medication as prescribed Print Language: Armenian Stand Alone Forms: Jacquelyn Award Info., Patient Portal Info Letter MDM Narrative MDM hospital course: 63M with history of HTN and BPH presents to ED with 3 days of LLQ pain and N/V. Patient denies dysuria and testicular/genital pain. Pain is described as dull ache, severity moderate. Denies any fever. Denies any other complaints no medications taken prior to arrival. Patient's workup today all came back normal including normal CT scan of the abdomen pelvis results discussed with the patient. Was given Motrin and mag citrate with significant for the pain Patient appears nontoxic and hemodynamically stable .Decision to discharge the patient. The patient/family was given an opportunity to ask questions and understood their discharge instructions. Discharge instructions specifically included follow up provider and time frame, current and/or new medications and possible side effects, indications for sooner follow up or return to the emergency department, and the expected course of current diagnosis. Patient reports feeling better as well and giving evidence of significant clinical improvement, I believe patient is now a candidate for discharge. Medication Administration(s) Medication Administration History Discontinued Medications Ibuprofen (Ibuprofen Tab 400 Mg Tablet) 800 mg PO X1 ONE Stop: 08/24/24 22:53 Magnesium Citrate (Magnesium Citrate 300 Ml Btl) 300 ml PO X1 ONE Stop: 08/24/24 22:53
[2024-08-24 19:47] LABS: Alanine Aminotransferase 36 U/L (10-49); Albumin, Serum 4.2 gm/dL (3.4-4.8); Albumin/Globulin Ratio 1.6 (1.2-2.2); Alkaline Phosphatase 128 U/L (46-116); Anion Gap 9 (7-16); Aspartate Amino Transferase 109 U/L (0-34); BUN/Creatinine Ratio 19 Ratio (12-20); Bilirubin,Total 0.6 mg/dL (0.3-1.2); Blood Urea Nitrogen 23 mg/dL (9-23); Calcium 8.9 mg/dL (8.3-10.6); Calcium (Corrected) 8.9 mg/dL (8.5-10.1); Carbon Dioxide 26.1 mMol/L (20.0-31.0); Chloride 108 mMol/L (98-107); Creatinine (Component) 1.2 mg/dL (0.6-1.3); Estimated Creatinine Clearance 60.8 mL/min (>60); Globulin 2.6 gm/dL (2.3-3.5); Glucose 90 mg/dL (74-106); Lipase 53 U/L (12-53); Osmolality,Calculated 288 (275-295); Potassium 4.1 mMol/L (3.4-5.1); Sodium 143 mMol/L (136-145); Total Protein 6.8 gm/dL (5.7-8.2); eGFR > 60 See Note
[2024-08-24 23:18] VITALS: BP 184/89; PULSE 54; RESP 16; O2SAT 100
[2024-08-24] MEDS: MAGNESIUM CITRATE 300 ML BTL PO (23:22)
[2024-08-24] MEDS: IBUPROFEN TAB 400 MG TABLET 800 MG PO (23:22)
== END 2024-08-24 23:26 | disposition home or self-care (01) ==
PROVIDERS: Physician Assistant; Emergency Provider Emergency Medicine
DX: K59.00 Constipation, unspecified (principal); K57.30 Diverticulosis of large intestine without perforation or abscess without bleeding; I10 Essential (primary) hypertension; N40.0 Benign prostatic hyperplasia without lower urinary tract symptoms
CPT/HCPCS: 36415; 74177; 80053; 81001; 83690; 85025; 99285; A4649; Q9967; A9270

== ENCOUNTER 2024-11-09 13:59 | Outpatient (AMB) | payer MEDICAID, SELFPAY ==
--- NOTE | 2024-11-09 14:17 | ORTHONT_ITS ---
Vital signs 11/09/24 14:18 Height 1.6 m Height Method Stated Weight 75.381 kg Weight Measurement Method Standing Scale BMI 29.4 BP 125/69 Blood Pressure Source Automatic Cuff Blood Pressure Location Left Upper Arm Position Sitting Respiration 18 Pulse 69 Pulse Source Monitor Temp 97 F Temp Source Temporal Artery Scan Pulse Oximetry (%) 98 Oxygen Delivery Method Room Air Med/Allergies Allergies & Medications Allergies No Known Allergies Allergy (Verified 11/09/24 14:19) Medication Reconciliation ibuprofen 800 mg tablet 800 mg PO TID PRN Pain 03/23/20 [History Confirmed 11/09/24] lisinopril 10 mg tablet 10 mg PO QDAY 03/23/20 [History Confirmed 11/09/24] polyethylene glycol 3350 17 gram/dose oral powder (Miralax) 17 g PO BID PRN constipation #510 grams 03/23/20 [Rx Confirmed 11/09/24] phenazopyridine 200 mg tablet (Pyridium) 200 mg PO TID PRN pain 6 doses #6 tabs 10/05/20 [Rx Confirmed 11/09/24] sulfamethoxazole 800 mg-trimethoprim 160 mg tablet (Bactrim DS) 1 tab PO Q12H #2 0 tabs 10/05/20 [Rx Confirmed 11/09/24] ciprofloxacin HCl 500 mg tablet 500 mg PO Q12H #20 tabs 03/01/21 [Rx Confirmed 11/09/24] ibuprofen 800 mg tablet 800 mg PO TID PRN fever or pain #30 tabs 06/21/21 [Rx Confirmed 11/09/24] albuterol sulfate 90 mcg/actuation aerosol inhaler 2 puff inhalation QID PRN shortness of breath or wheezing #8.5 grams 06/24/21 [Rx Confirmed 11/09/24] acetaminophen 650 mg tablet,extended release 650 mg PO Q8H PRN fever or pain #30 tabs 02/17/22 [Rx Confirmed 11/09/24] albuterol sulfate 90 mcg/actuation aerosol inhaler 2 puff inhalation Q6H PRN cough / wheezing #6.7 grams 02/17/22 [Rx Confirmed 11/09/24] ibuprofen 600 mg tablet 600 mg PO Q8H PRN fever or pain #30 tabs 02/17/22 [Rx Confirmed 11/09/24] inhalational spacing device (Aerochamber MV spacer) #1 ea 02/17/22 [Rx Confirmed 11/09/24] ipratropium bromide 21 mcg (0.03 %) nasal spray 2 spray intranasal BID #30 mL 02/17/22 [Rx Confirmed 11/09/24] promethazine-DM 6.25 mg-15 mg/5 mL oral syrup 5 ml PO Q6H PRN cough #120 mL 02/17/22 [Rx Confirmed 11/09/24] naproxen 500 mg tablet 500 mg PO BID PRN pain #14 tabs 06/19/22 [Rx Confirmed 11/09/24] ibuprofen 600 mg tablet 600 mg PO Q6H #30 tabs 07/16/22 [Rx Confirmed 11/09/24] ibuprofen 800 mg tablet 800 mg PO TID PRN pain #30 tabs 09/07/22 [Rx Confirmed 11/09/24] naproxen 500 mg tablet 500 mg PO BID PRN pain #30 tabs 12/06/22 [Rx Confirmed 11/09/24] ofloxacin 0.3 % eye drops 2 drp ophthalmic (eye) QID #5 mL 07/16/23 [Rx Confirmed 11/09/24] polyethylene glycol 3350 17 gram/dose oral powder (Miralax) 4 g PO QDAY PRN constipation #238 grams 08/24/24 [Rx Confirmed 11/09/24] ibuprofen 800 mg tablet 800 mg PO Q8H PRN pain #30 tabs 11/09/24 [Rx] Exam Exam Patient is in no acute distress and is cooperative with the examination today. Breathing is nonlabored. Patient has a normal mood and affect. Bilateral extremities were evaluated and demonstrates sensation intact to light touch. Palpable pedal pulses are present. No significant edema is present. Bilateral hips were examined. The patient has no pain with log roll of the hips. Internal rotation to 30 degrees and external rotation to 30 degrees is painless. Negative FADIR. Right knee was examined today. The right knee is in reasonable alignment. Range of motion from 0-120 degrees. Knee is stable to varus and valgus as well as AP translation with <5mm. Patient has a negative McMurrays. There is no pain with patellofemoral compression and no crepitus noted. The knee is nontender to palpation. Left knee was examined today. The left knee is in [varus] alignment. Range of motion from [0-115] degrees. Knee is stable to varus and valgus as well as AP translation with <5mm. Patient has a [negative] McMurrays. There is [no] pain with patellofemoral compression and [no] crepitus noted. The knee is [tender] to palpation [medially]. X-rays demonstrate severe joint space narrowing medially. Assessment and Plan Problem List (1) Arthritis of left knee: Status: Acute Plan: Patient is a pleasant 62-year-old male with severe left knee arthritis. We discussed nonoperative and operative options. He would like injections As he has done well in the past with them. Recommend knee cortisone injection as patient would like to proceed with conservative treatment at this time. The risks and benefits of the procedure were reviewed with the patient and patient gave verbal consent to continue with the procedure. Procedure: performed by Dr. Hodge Using sterile technique the left knee was thoroughly prepped with alcohol, and approximately 1 cc of Depo-Medrol 80mg/mL and 4 cc of 0.2% ropivacaine was injected without resistance into the medial tibial femoral joint space. The patient tolerated the procedure. Recommend knee cortisone injection as patient would like to proceed with conservative treatment at this time. The risks and benefits of the procedure were reviewed with the patient and patient gave verbal consent to continue with the procedure. Procedure: performed by Dr. Hodge Using sterile technique the Right knee was thoroughly prepped with alcohol, and approximately 1 cc of Depo-Medrol 80mg/mL and 4 cc of 0.2% ropivacaine was injected without resistance into the medial tibial femoral joint space. The patient tolerated the procedure. Office Procedures GNS Level of Care Nursing/Assessment Patient Status: Established Patient Nursing Assessment/Reassesment: Medication Reconciliation, Update PMH in EMR and Vital Signs Coordination of Care: Complex Care and Chronic Disease 1-5, Education Complex Pt/Fam, Consent,records obtained, informed consent, Results/Orders obtained and Staff clarify orders Special Needs: Language special needs Established Patient Charge Established Patient Point Assignment: 95 Established Patient Point Charge: EP Level 3 (80-115) Surgical Proc/IM SQ injection Major Surgical Procedure: Yes (BILATERAL KNEE INJECTION) Medication Given Medication Given Medication Given: Yes Documented Dose Given: 1 Route: Infiitration Medication Given Medication Given Medication Given: Yes Documented Dose Given: 1 Route: Infiitration Medication Given Medication Given Medication Given: Yes Documented Dose Given: 4 Route: Infiitration Medication Given Medication Given Medication Given: Yes Documented Dose Given: 4 Route: Infiitration Office Meds methylprednisolone acetate 80 mg/mL suspension for injection Performing Provider: Ruddy Hodge MD Performing Location: [facility] Administered by: Ruddy Hodge MD on 11/09/24 14:36 Dose Route Admin Location Dispensed Lot Number Expiration Date ND [employer] 80 mg intra-articular 1 mL [id number] 08/11/26 [address]-2 [employer] methylprednisolone acetate 80 mg/mL suspension for injection Performing Provider: Ruddy Hodge MD Performing Location: [facility] Administered by: Ruddy Hodge MD on 11/09/24 14:36 Dose Route Admin Location Dispensed Lot Number Expiration Date ND [employer] 80 mg intra-articular 1 mL [id number] 08/11/26 [address]-1 [employer] ropivacaine (PF) 2 mg/mL (0.2 %) injection solution Performing Provider: Ruddy Hodge MD Performing Location: [facility] Administered by: Ruddy Hodge MD on 11/09/24 14:36 Dose Route Admin Location Dispensed Lot Number Expiration Date ND [employer] Operator 20 mL Infiltration 20 mL [id number] 04/13/27 85972-555-21 [email or web address] ropivacaine (PF) 2 mg/mL (0.2 %) injection solution Performing Provider: Ruddy Hodge MD Performing Location: [facility] Administered by: Ruddy Hodge MD on 11/09/24 14:36 Dose Route Admin Location Dispensed Lot Number Expiration Date ND [employer] 20 mL Infiltration 20 mL [id number] 04/13/27 83971-247-09 [facility] Intake Visit Data Collection New Patient or Established: Established Patient (seen at [facility] within 3 years) Reason for Visit:: FU 3 MNTH LT KNEE INJECTION Seen by Clinical Staff ONLY (RN/MA): No Manager Primary Care Required: Yes PCP or OBGYN visit in last 3 months: Yes Hx Now: No Do You Feel Safe at Home: Yes Authorities Contacted: N/A Questionairres Past Medical History Past Medical History Have you ever been diagnosed with any of the following: Neurological Problems Cerebrovascular Accident (CVA): No Transient Ischemic Attacks (TIA): No Dementia: No Alzheimer's Disease: No Parkinson's Disease: No Brain Tumor: No Meningitis: No Seizures: No Epilepsy: No Multiple Sclerosis: No Cerebral Palsy: No Amyotrophic Lateral Sclerosis (ALS/Betsey Gehrig's): No Guillain-Marietta Syndrome: No Spina Bifida: No Paralysis: Yes Peripheral Neuropathy: No Mead's Palsy: No Subdural Hematoma: No Migraine: No Head Trauma: No Spinal Cord Injury: No Traumatic Brain Injury: No Cardiology Problems Myocardial Infarction: No Cardiac Arrhythmia: No Atrial Fibrillation: No Angina: No Heart Murmur: No Coronary Artery Disease: No Atherosclerotic Heart Disease: No Peripheral Vascular Disease: No Hypercholesterolemia: No Aneurysm: No Congestive Heart Failure: No Congenital Heart Disease: No Valvular Heart Disease: No Rheumatic Fever: No Cardiomyopathy: No Edema: No Pericarditis: No Cellulitis: No Deep Vein Thrombosis: No Hypertension: Yes Hypotension: No Varicose Veins: No Respiratory Problems Chronic Obstructive Pulmonary Disease (COPD): No Asthma: No Bronchitis: No Emphysema: No Pneumonia: No Pulmonary Fibrosis: No Tuberculosis: No Pulmonary Embolism: No Pulmonary Edema: No Sleep Apnea: No CPAP Dependent: No Respiratory Aspiration: No Dyspnea: No Orthopnea: No Hx Cough: No Cough: No Wheezing: No Chest Deformities: No Smoking: No Smoking Cessation Counseling: No Smoking Exposure: No Tobacco Use: No Clubbing: No Exposure to Respiratory Irritants: No Intubation: No Stomache/Intestinal Problems Liver Cancer: No Hepatitis: No Cirrhosis: No Pancreatic Cancer: No Pancreatitis: No Celiac Disease: No Gall Bladder Disease: No Gastrointestinal Bleed: No Esophageal Varices: No Roman's Esophagus: No Colitis: No Ulcerative Colitis: No Diverticulitis: No Diverticulosis: No Ulcer: No Colorectal Cancer: No Irritable Bowel: No Crohn's Disease: No Obstructive Bowel: No Hiatal Hernia: No Hemorrhoids: No Gastroesophageal Reflux Disease: No Polyps: No Obesity: No Genital/Urinary Problems Chronic Kidney Disease: No Renal Disease: No Kidney Stones: No Polycystic Kidney Disease: No Neurogenic Bladder: No Inguinal Hernia: No Dialysis: No Prostate Cancer: No Benign Prostatic Hyperplasia: No Reproductive Problems Breast Cancer: No Fibroids: No Genital Herpes: No Gonorrhea: No Syphilis: No Testicular Cancer: No Musculoskeletal Problems Muscular Dystrophy: No Myasthenia Gravis: No Marfan's Syndrome: No Bone Cancer: No Arthritis: No Rheumatoid Arthritis: No Osteoporosis: No Degenerative Disk Disease: No Gout: No Scoliosis: No Carpal Tunnel Syndrome: No Fibromyalgia: No Fractures: No Degenerative Joint Disease: No Osteomyelitis: No Poliovirus: No Head,Eye,Nose,Throat Problems Cataracts: No Glaucoma: No Blind: Yes Retinal Detachment: No Macular Degeneration: No Chronic Ear Infections: No Deafness: No Eye Prosthesis: Yes Endocrine Problems Diabetes Mellitus Type 1: No Diabetes Mellitus Type 2: No Hypoglycemia: No Gardiner's Syndrome: No Oakes's Disease: No Hyperthyroidism: No Hypothyroidism: No Thyroid Cancer: No Parathyroid Disease: No Pituitary Disease: No Systemic Lupus Erythematosus: No Syndrome of Inappropriate Antidiuretic Hormone: No Adrenal Disease: No Graves' Disease: No Blood Problems Anemia: No Leukemia: No Hemophilia: No Thalassemia: No Sickle Cell Disease: No Clotting Problems: No Psychologic Problems Schizophrenia: No Recreational Drug Use: No Bipolar Disorder: No Depression: No Anxiety: No Behavior Problems: No Self-Mutilation: No Attention Deficit Disorder: No Attention Deficit Hyperactivity Disorder: No Depression: No Post Traumatic Stress Disorder: No Eating Disorder: No Other Problems Hospitalization: No Autoimmune Disease: No Down Syndrome: No Autism: No Developmental Delay: No Cosmetic Surgery: No Shingles: No Falls: No Blood Transfusions: No Blood Transfusion Reaction: No Anesthesia Reactions: No Organ Transplant: No Chemotherapy: No Radiation Therapy: No Hyperbaric Therapy: No MRSA: No VRSA: No Vancomycin-Resistant Enterococci: No Human Immunodeficiency Virus (HIV): No Chicken Pox: No Measles: No Mumps: No Rubella ([place] Measles): No Pertussis: No Klebsiella Pneumoniae Carbapenemase Producing Bacteria: No Clostridium Difficile: No Hepatitis A: No Hepatitis B: No Hepatitis C: No Communicable Disease: No Cancer: No Lung Cancer: No Subjective Visit Visit for: follow up visit and knee (LEFT KNEE ) Immunization / Flu Flu Vaccine in the Last 12 Months: No Flu Vaccine Exclusion Criteria: Refused by Patient History of Present Illness Chief complaint: Bilateral knee pain Patient is a 63-year-old male with bilateral knee pain worse on the left. He would like cortisone injections today. The last injections have workedfor 3 months Personal History Red flag PMH: none Pain Pain level (0-10): 7 Pain duration: 1 WEEK Pain location: anterior Pain quality: sharp Pain timing: night Associated signs & symptoms: numbness, weakness and stiffness Ambulatory data Ambulatory device: none Walking distance (minutes): 10 Treatments Number of previous injections: 2 Improvement with previous injections: Yes Number of Physical Therapy sessions: 0 Improvement with NSAIDS: n/a Review of Systems Review of Systems: All systems negative unless otherwise noted in HPI.
[2024-11-09 14:18] VITALS: BP 125/69; PULSE 69; RESP 18; TEMP 36.1; O2SAT 98; BMI 29.4
== END 2024-11-09 14:36 | disposition home or self-care (01) ==
LOC: HODSRG 13:59
PROVIDERS: Supervising Provider Orthopaedic Surgery Adult Reconstructive Orthopaedic Surgery; Visit Provider Orthopaedic Surgery Adult Reconstructive Orthopaedic Surgery
DX: M17.12 Unilateral primary osteoarthritis, left knee (principal); M25.562 Pain in left knee; M25.561 Pain in right knee; I10 Essential (primary) hypertension
CPT/HCPCS: 20610; 99213; J1010; J2795; G0463

== ENCOUNTER 2024-12-26 13:47 | Emergency (ER) | payer MEDICAID, SELFPAY ==
[2024-12-26 14:17] VITALS: BP 158/81; PULSE 63; RESP 18; TEMP 36.9; O2SAT 99; BMI 29.8
--- NOTE | 2024-12-26 14:28 | PD.EDANIML ---
ED Animal Bite RME/HPI General Chief Complaint: Animal Bite Stated Complaint: DOG BITE Time Seen by Provider: 12/26/24 14:09 Source: patient Arrival date/time: 12/26/24 13:47 64-year-old male with a history of hypertension presents to the emergency room with a chief complaint of a dog bite to his right calf that occurred 1 hour ago. Mode of arrival: ambulatory Limitations: no limitations Related Data Home Medications ?Medication ?Instructions ?Recorded ?Confirmed ibuprofen 800 mg tablet 800 mg PO TID PRN Pain 03/23/20 11/09/24 lisinopril 10 mg tablet 10 mg PO QDAY 03/23/20 11/09/24 Previous Rx's ?Medication ?Instructions ?Recorded polyethylene glycol 3350 17 17 g PO BID PRN constipation #510 03/23/20 gram/dose oral powder (Miralax) grams phenazopyridine 200 mg tablet 200 mg PO TID PRN pain 6 doses #6 10/05/20 (Pyridium) tabs sulfamethoxazole 800 1 tab PO Q12H #20 tabs 10/05/20 mg-trimethoprim 160 mg tablet (Bactrim DS) ciprofloxacin HCl 500 mg tablet 500 mg PO Q12H #20 tabs 03/01/21 ibuprofen 800 mg tablet 800 mg PO TID PRN fever or pain 06/21/21 #30 tabs albuterol sulfate 90 mcg/actuation 2 puff inhalation QID PRN 06/24/21 aerosol inhaler shortness of breath or wheezing #8.5 grams acetaminophen 650 mg 650 mg PO Q8H PRN fever or pain 02/17/22 tablet,extended release #30 tabs albuterol sulfate 90 mcg/actuation 2 puff inhalation Q6H PRN cough / 02/17/22 aerosol inhaler wheezing #6.7 grams ibuprofen 600 mg tablet 600 mg PO Q8H PRN fever or pain 02/17/22 #30 tabs inhalational spacing device #1 ea 02/17/22 (Aerochamber MV spacer) ipratropium bromide 21 mcg (0.03 2 spray intranasal BID #30 mL 02/17/22 %) nasal spray promethazine-DM 6.25 mg-15 mg/5 mL 5 ml PO Q6H PRN cough #120 mL 02/17/22 oral syrup naproxen 500 mg tablet 500 mg PO BID PRN pain #14 tabs 06/19/22 ibuprofen 600 mg tablet 600 mg PO Q6H #30 tabs 07/16/22 ibuprofen 800 mg tablet 800 mg PO TID PRN pain #30 tabs 09/07/22 naproxen 500 mg tablet 500 mg PO BID PRN pain #30 tabs 12/06/22 ofloxacin 0.3 % eye drops 2 drp ophthalmic (eye) QID #5 mL 07/16/23 polyethylene glycol 3350 17 4 g PO QDAY PRN constipation #238 08/24/24 gram/dose oral powder (Miralax) grams ibuprofen 800 mg tablet 800 mg PO Q8H PRN pain #30 tabs 11/09/24 amoxicillin 875 mg-potassium 1 tab PO BID 7 days #14 tabs 12/26/24 clavulanate 125 mg tablet Allergies Allergy/AdvReac Type Severity Reaction Status Date / Time No Known Allergies Allergy Verified 12/26/24 13:54 Review of Systems Review of Systems Systems Reviewed: All systems reviewed, normal except as documented Constitutional Constitutional: Reports system reviewed and no additional complaints, except as documented, Denies fatigue, Denies fever(s), Denies headache(s) and Denies weakness Eyes Eyes: Reports system reviewed and no additional complaints, except as documented, Denies blurry vision and Denies change in vision ENT Ears, Nose, Mouth, and Throat: Reports system reviewed and no additional complaints, except as documented, Denies otalgia, Denies headache(s), Denies nasal congestion, Denies throat swelling and Denies vertigo Cardiovascular Cardiovascular: Reports system reviewed and no additional complaints, except as documented, Denies chest pain, Denies dyspnea and Denies dyspnea on exertion Respiratory Respiratory: Reports system reviewed and no additional complaints, except as documented, Denies chest congestion, Denies cough, Denies dyspnea, Denies dyspnea on exertion and Denies wheezing Gastrointestinal Gastrointestinal: Reports system reviewed and no additional complaints, except as documented, Denies abdominal pain, Denies cramping, Denies nausea and Denies vomiting Genitourinary Genitourinary: Reports system reviewed and no additional complaints, except as documented, Denies dysuria and Denies hematuria Musculoskeletal Musculoskeletal: Reports system reviewed and no additional complaints, except as documented and Denies back pain Integumentary/Breasts Skin/Breast: Reports system reviewed and no additional complaints, except as documented and Reports wounds Neurologic Neurologic: Reports system reviewed and no additional complaints, except as documented, Denies confusion, Denies headache(s), Denies lack of coordination, Denies vertigo and Denies weakness Psychiatric Psychiatric: Reports system reviewed and no additional complaints, except as documented, Denies anxiety, Denies confusion, Denies depression, Denies paranoia, Denies suicidal ideation and Denies tactile hallucinations Endocrine Endocrine: Reports system reviewed and no additional complaints, except as documented and Denies fatigue Hematologic/Lymphatic Hematologic/Lymphatic: Reports system reviewed and no additional complaints, except as documented and Denies lymphadenopathy Allergic/Immunologic Allergic/Immunologic: Reports system reviewed and no additional complaints, except as documented, Denies throat swelling, Denies urticaria and Denies wheezing Past Medical History Past Medical History NEUROLOGIC: Positive Paralysis; Negative Neurological Disorders, Cerebrovascular Accident, Transient Ischemic Attacks (TIA), Dementia, Alzheimer's Disease, Parkinson's Disease, Brain Tumor, Meningitis, Seizures, Epilepsy, Multiple Sclerosis, Cerebral Palsy, Amyotrophic Lateral Sclerosis (ALS/Betsey Gehrig's), Guillain-[place] Syndrome, Spina Bifida, Peripheral Neuropathy, Mead's Palsy, Subdural Hematoma, Migraine, Head Trauma, Spinal Cord Injury or Traumatic Brain Injury CARDIAC: Positive Hypertension; Negative Cardiac Disorders, Myocardial Infarction, Cardiac Arrhythmia, Atrial Fibrillation, Angina, Heart Murmur, Coronary Artery Disease, Atherosclerotic Heart Disease, Peripheral Vascular Disease, Hypercholesterolemia, Aneurysm, Congestive Heart Failure, Congenital Heart Disease, Valvular Heart Disease, Rheumatic Fever, Cardiomyopathy, Edema, Pericarditis, Cellulitis, Deep Vein Thrombosis, Hypotension or Varicose Veins RESPIRATORY: Negative Chronic Obstructive Pulmonary Disease (COPD), Asthma, Bronchitis, Emphysema, Pneumonia, Pulmonary Fibrosis, Tuberculosis, Pulmonary Embolism, Pulmonary Edema, Sleep Apnea, CPAP Dependent, Respiratory Aspiration, Dyspnea, Orthopnea, Cough, Sputum Production, Wheezing, Chest Deformities, Smoking, Smoking Cessation Counseling, Smoking Exposure, Tobacco Use, Clubbing, Exposure to Respiratory Irritants or Intubation GASTROINTESTINAL: Negative Gastrointestinal Disorders, Liver Cancer, Hepatitis, Cirrhosis, Pancreatic Cancer, Pancreatitis, Celiac Disease, Gall Bladder Disease, Gastrointestinal Bleed, Esophageal Varices, Roman's Esophagus, Colitis, Ulcerative Colitis, Diverticulitis, Diverticulosis, Ulcer, Colorectal Cancer, Irritable Bowel, Crohn's Disease, Obstructive Bowel, Hiatal Hernia, Hemorrhoids, Gastroesophageal Reflux Disease or Obesity GENITOURINARY: Negative Genitourinary Disorders, Renal Disease, Kidney Stones, Polycystic Kidney Disease, Neurogenic Bladder, Inguinal Hernia, Dialysis, Prostate Cancer or Benign Prostatic Hyperplasia REPRODUCTIVE: Negative Breast Cancer, Fibroids, Genital Herpes, Gonorrhea, Syphilis or Testicular Cancer MUSCULOSKELETAL: Positive Musculoskeletal Disorders; Negative Muscular Dystrophy, Myasthenia Gravis, Marfan's Syndrome, Bone Cancer, Arthritis, Rheumatoid Arthritis, Osteoporosis, Degenerative Disk Disease, Gout, Scoliosis, Carpal Tunnel Syndrome, Fibromyalgia, Fractures, Degenerative Joint Disease, Osteomyelitis or Poliovirus ENT: Positive Blind and Eye Prosthesis; Negative Cataracts, Glaucoma, Retinal Detachment, Macular Degeneration, Ear Infection, Deafness or Head Trauma ENDOCRINE: Negative Endocrine Disorders, Diabetes Mellitus Type 1, Diabetes Mellitus Type 2, Hypoglycemia, Harpster's Syndrome, Hayes's Disease, Hyperthyroidism, Hypothyroidism, Thyroid Cancer, Parathyroid Disease, Pituitary Disease, Systemic Lupus Erythematosus, Syndrome of Inappropriate Antidiuretic Hormone (SIADH), Adrenal Disease or Graves' Disease HEMATOLOGIC: Negative Blood Disorders, Anemia, Leukemia, Hemophilia, Thalassemia, Sickle Cell Disease or Clotting Problems PSYCHO/SOCIAL: Negative Schizophrenia, Recreational Drug Use, Bipolar Disorder, Depression, Anxiety, Behavior Problems, Self-Mutilation, Attention Deficit Disorder, Attention Deficit Hyperactivity Disorder, Depression, Post Traumatic Stress Disorder or Eating Disorder OTHER HISTORY: Negative Hospitalization, Autoimmune Disease, Down Syndrome, Autism, Developmental Delay, Cosmetic Surgery, Shingles, Falls, Blood Transfusions, Blood Transfusion Reaction, Anesthesia Reactions, Organ Transplant, Chemotherapy, Radiation Therapy, Hyperbaric Therapy, MRSA, VRSA, Vancomycin-Resistant Enterococci, Human Immunodeficiency Virus (HIV), Chicken Pox, Measles, Mumps, Rubella ([place] Measles), Pertussis, Hx Klebsiella Pneumoniae Carbapenemase (KPC)-Producing Bacteria, Clostridium Difficile, Hepatitis A, Hepatitis B, Hepatitis C, Communicable Disease, Cancer, Breast Cancer, Colorectal Cancer, Lung Cancer, Prostate Cancer or Testicular Cancer Surgical History SURGICAL: Positive Joint Replacement; Negative Cardiac Surgery or Organ Transplant Social History SMOKING STATUS: Never smoker SUBSTANCE USE: does not use ED Exam General Limitations: Present no limitations General appearance: Present alert and in no apparent distress Head Head exam: Present atraumatic Eye Eye exam: Present normal appearance, PERRL and EOMI ENT ENT exam: Present normal exam, normal oropharynx and mucous membranes moist Neck Neck exam: Present normal inspection, full ROM and trachea midline Chest Chest inspection: Present normal inspection and symmetric chest wall rise Respiratory Respiratory exam: Present normal lung sounds bilaterally Cardiovascular Cardiovascular exam: Present regular rate, normal rhythm and normal heart sounds Abdominal Exam Abdominal exam: Present soft and normal bowel sounds Extremities Exam Extremities exam: Present normal inspection and full ROM Expanded Lower Extremity Exam Hip/Pelvis exam: Present normal inspection Back Exam Back exam: Present normal inspection and full ROM Neurological Exam Neurological exam: Present alert, oriented X3 and CN II-XII intact Psychiatric Psychiatric exam: Present normal affect and normal mood Skin Skin exam: Present warm, dry, intact and normal color Course Quality Measures none Orders Category Date Time Status Wound Care X1 Care 12/26/24 14:27 Completed TET,DIP/PERT AC (Adult)-Tdap [Boostrix Adult (Tdap) Med 12/26/24 14:27 Discontinued Vacc] 0.5 ml IMI .ONCE ONE Vital Signs Vital signs: Vital Signs Temperature 98.5 F 12/26/24 14:17 Pulse Rate 63 12/26/24 14:17 Respiratory Rate 18 12/26/24 14:17 Blood Pressure 158/81 H 12/26/24 14:17 Pulse Oximetry (%) 99 12/26/24 14:17 Oxygen Delivery Method Room Air 12/26/24 14:17 Animal Bite MDM Narrative MDM Narrative:: 64-year-old male with a history of hypertension presents to the emergency room with a chief complaint of a dog bite to his right calf that occurred 1 hour ago. Patient is hemodynamically stable and in no apparent distress Physical examination shows a small 2 cm puncture to the right calf. There is no need to close and approximate the wound. Tetanus vaccination was updated. The patient was sent home with oral antibiotics Patient was discharged and educated to follow-up with primary care provider in the next 24 to 48 hours and return to the emergency room for any evidence of worsening signs or symptoms Patient data External records reviewed:: [facility] previous records Clinical information provided by:: patient Social determinants that could affect healthcare access:: none Patient has the following chronic illnesses:: No chronic illness How is presenting disease/condition affected by chronic disease/condition?: no chronic disease Evaluation data The following diagnostics were reviewed and interpreted by me:: lab results and radiology exam(s) Lab and/or radiology exams considered but not ordered:: Labs and radiology exams considered and ordered Interpretation Summary: N/A Medications / Prescriptions Medications or Prescriptions considered but not ordered:: Medication given Medication administrations:: Medication Administration History Discontinued Medications Diphtheria/Tetanus/Acell Pertussis (Diphth,Pertuss(Acell),Tet Vac 0.5 Ml Syr- Adult) 0.5 ml IMi .ONCE ONE Stop: 12/26/24 14:28 Last Admin: 12/26/24 14:41 Dose: 0.5 ml Documented By: PAUL Medication given Consultations Consultation(s) initiated? (list below): No Diagnosis Differential diagnosis animal bite: bite by animal, cat bite and dog bite Most likely diagnosis given after review of the tests above:: Dog bite Admission Indicated Admission indicated?: not indicated Admission Request Was there a request for admission?: No Disposition Plan Disposition Plan: Discharge Discharge Attestation Discharge Attestation: The patient and all family members were given an opportunity to ask questions and understood the discharge instructions. Discharge instructions specifically effects, indications for sooner follow up or return to the emergency department, and the expected course of current diagnosis. Patient condition: Stable Discharge Plan Plan Patient Disposition: HOME (Self Care) Discharge Disposition comment: Stable Prescriptions/Referrals Prescriptions/Med Rec: New amoxicillin-pot clavulanate 875-125 mg tablet 1 tab PO BID 7 Days Qty: 14 0RF No Action ibuprofen 800 mg tablet 800 mg PO Q8H PRN (Reason: pain) Qty: 30 0RF lidocaine HCl [Xylocaine] 10 mg/mL (1 %) solution 20 ml Infiltration X1 Qty: 20 0RF triamcinolone acetonide 40 mg/mL suspension 40 mg IM ONCE Qty: 1 0RF ibuprofen [Motrin] 800 mg Tablet 800 mg PO TID PRN (Reason: Pain) lisinopril 10 mg Tablet 10 mg PO QDAY polyethylene glycol 3350 [Miralax] 17 gram/dose powder 17 g PO BID PRN (Reason: constipation) Qty: 510 0RF ciprofloxacin HCl 500 mg tablet 500 mg PO Q12H Qty: 20 0RF albuterol sulfate 90 mcg/actuation HFA aerosol inhaler 2 puff inhalation QID PRN (Reason: shortness of breath or wheezing) Qty: 8.5 0RF phenazopyridine [Pyridium] 200 mg tablet 200 mg PO TID PRN (Reason: pain) Qty: 6 0RF sulfamethoxazole-trimethoprim [Bactrim DS] 800-160 mg tablet 1 tab PO Q12H Qty: 20 0RF ibuprofen 800 mg tablet 800 mg PO TID PRN (Reason: fever or pain) Qty: 30 0RF naproxen 500 mg tablet 500 mg PO BID PRN (Reason: pain) Qty: 14 0RF ibuprofen 800 mg tablet 800 mg PO TID PRN (Reason: pain) Qty: 30 0RF naproxen 500 mg tablet 500 mg PO BID PRN (Reason: pain) Qty: 30 0RF ofloxacin 0.3 % drops 2 drp ophthalmic (eye) QID Qty: 5 0RF polyethylene glycol 3350 [Miralax] 17 gram/dose powder 4 g PO QDAY PRN (Reason: constipation) Qty: 238 0RF acetaminophen 650 mg tablet extended release 650 mg PO Q8H PRN (Reason: fever or pain) Qty: 30 0RF Rx Instructions: swallow whole; do not chew/break/dissolve/open (DME) Aerochamber MV Spacer See Dose Instructions .ROUTE .MEDSUPPLY Qty: 1 0RF Dose Instruction: As directed Rx Instructions: As directed albuterol sulfate 90 mcg/actuation HFA aerosol inhaler 2 puff INH Q6H PRN (Reason: cough / wheezing ) Qty: 6.7 0RF Rx Instructions: administer with spacer promethazine-DM 6.25-15 mg/5 mL syrup 5 ml PO Q6H PRN (Reason: cough) Qty: 120 0RF ibuprofen 600 mg tablet 600 mg PO Q8H PRN (Reason: fever or pain) Qty: 30 0RF ipratropium bromide 21 mcg (0.03 %) spray,non-aerosol 2 spray INTRANASAL BID Qty: 30 0RF Rx Instructions: administer into each nostril ibuprofen 600 mg tablet 600 mg PO Q6H Qty: 30 0RF Problem List Clinical Impression: Dog bite Patient/Caregiver Discharge Instructions Education Materials: ED Dog Bite Additional Instructions: Please follow-up with your primary care provider in the next 24 to 48 hours Antibiotics are sent to your pharmacy please pick them up and take them as indicated For any evidence of worsening signs or symptoms return to the emergency room immediately Print Language: Danish Stand Alone Forms: Jacquelyn Award Info., Work/School Release, Patient Portal Info Letter Vaccines Vaccines Given During Stay: TDaP PA/DISASTER RECOVERY SPECIALIST Supervising Physician PA/DISA[employer] RECOV[employer] SPECIALIST Supervising Physician: Dr. Brar
[2024-12-26] MEDS: DIPHTH,PERTUSS(ACELL),TET VAC 0.5 ML SYR- ADULT IMi (14:41)
== END 2024-12-26 14:51 | disposition home or self-care (01) ==
LOC: SERX 14:57
PROVIDERS: Emergency Provider Emergency Medicine; PCP Nurse Practitioner Family
DX: S81.851A Open bite, right lower leg, initial encounter (principal); I10 Essential (primary) hypertension; W54.0XXA Bitten by dog, initial encounter; Z96.60 Presence of unspecified orthopedic joint implant; Z23 Encounter for immunization
CPT/HCPCS: 90471; 90715; 99284

== ENCOUNTER 2025-03-06 13:01 | Outpatient (AMB) | payer MEDICAID, SELFPAY ==
--- NOTE | 2025-03-06 13:34 | PD.ORTHCLVIS ---
Vital signs 03/06/25 13:35 Height 1.6 m Height Method Stated Weight 68.492 kg Weight Measurement Method Standing Scale BMI 26.7 BP 102/65 Blood Pressure Source Automatic Cuff Blood Pressure Location Left Upper Arm Position Sitting Respiration 18 Pulse 72 Pulse Source Monitor Temp 96.4 F L Temp Source Temporal Artery Scan Pulse Oximetry (%) 96 Oxygen Delivery Method Room Air Med/Allergies Allergies & Medications Allergies No Known Allergies Allergy (Verified 03/06/25 13:36) Medication Reconciliation ibuprofen 800 mg tablet 800 mg PO TID PRN Pain 03/23/20 [History Confirmed 03/06/25] lisinopril 10 mg tablet 10 mg PO QDAY 03/23/20 [History Confirmed 03/06/25] polyethylene glycol 3350 17 gram/dose oral powder (Miralax) 17 g PO BID PRN constipation #510 grams 03/23/20 [Rx Confirmed 03/06/25] phenazopyridine 200 mg tablet (Pyridium) 200 mg PO TID PRN pain 6 doses #6 tabs 10/05/20 [Rx Confirmed 03/06/25] sulfamethoxazole 800 mg-trimethoprim 160 mg tablet (Bactrim DS) 1 tab PO Q12H #20 tabs 10/05/20 [Rx Confirmed 03/06/25] ciprofloxacin HCl 500 mg tablet 500 mg PO Q12H #20 tabs 03/01/21 [Rx Confirmed 03/06/25] ibuprofen 800 mg tablet 800 mg PO TID PRN fever or pain #30 tabs 06/21/21 [Rx Confirmed 03/06/25] albuterol sulfate 90 mcg/actuation aerosol inhaler 2 puff inhalation QID PRN shortness of breath or wheezing #8.5 grams 06/24/21 [Rx Confirmed 03/06/25] acetaminophen 650 mg tablet,extended release 650 mg PO Q8H PRN fever or pain #30 tabs 02/17/22 [Rx Confirmed 03/06/25] albuterol sulfate 90 mcg/actuation aerosol inhaler 2 puff inhalation Q6H PRN cough / wheezing #6.7 grams 02/17/22 [Rx Confirmed 03/06/25] ibuprofen 600 mg tablet 600 mg PO Q8H PRN fever or pain #30 tabs 02/17/22 [Rx Confirmed 03/06/25] inhalational spacing device (Aerochamber MV spacer) #1 ea 02/17/22 [Rx Confirmed 03/06/25] ipratropium bromide 21 mcg (0.03 %) nasal spray 2 spray intranasal BID #30 mL 02/17/22 [Rx Confirmed 03/06/25] promethazine-DM 6.25 mg-15 mg/5 mL oral syrup 5 ml PO Q6H PRN cough #120 mL 02/17/22 [Rx Confirmed 03/06/25] naproxen 500 mg tablet 500 mg PO BID PRN pain #14 tabs 06/19/22 [Rx Confirmed 03/06/25] ibuprofen 600 mg tablet 600 mg PO Q6H #30 tabs 07/16/22 [Rx Confirmed 03/06/25] ibuprofen 800 mg tablet 800 mg PO TID PRN pain #30 tabs 09/07/22 [Rx Confirmed 03/06/25] naproxen 500 mg tablet 500 mg PO BID PRN pain #30 tabs 12/06/22 [Rx Confirmed 03/06/25] ofloxacin 0.3 % eye drops 2 drp ophthalmic (eye) QID #5 mL 07/16/23 [Rx Confirmed 03/06/25] polyethylene glycol 3350 17 gram/dose oral powder (Miralax) 4 g PO QDAY PRN constipation #238 grams 08/24/24 [Rx Confirmed 03/06/25] ibuprofen 800 mg tablet 800 mg PO Q8H PRN pain #30 tabs 11/09/24 [Rx Confirmed 03/06/25] Exam Exam Patient is in no acute distress and is cooperative with the examination today. Breathing is nonlabored. Patient has a normal mood and affect. Bilateral extremities were evaluated and demonstrates sensation intact to light touch. Palpable pedal pulses are present. No significant edema is present. Bilateral hips were examined. The patient has no pain with log roll of the hips. Internal rotation to 30 degrees and external rotation to 30 degrees is painless. Negative FADIR. Right knee was examined today. The right knee is in reasonable alignment. Range of motion from 0-120 degrees. Knee is stable to varus and valgus as well as AP translation with <5mm. Patient has a negative McMurrays. There is no pain with patellofemoral compression and no crepitus noted. The knee is nontender to palpation. Left knee was examined today. The left knee is in [varus] alignment. Range of motion from [0-115] degrees. Knee is stable to varus and valgus as well as AP translation with <5mm. Patient has a [negative] McMurrays. There is [no] pain with patellofemoral compression and [no] crepitus noted. The knee is [tender] to palpation [medially]. X-rays demonstrate severe joint space narrowing medially. Assessment and Plan Problem List (1) Arthritis of left knee: Status: Acute Plan: Patient is a pleasant 62-year-old male with severe left knee arthritis. We discussed nonoperative and operative options. He would like injections As he has done well in the past with them. Recommend knee cortisone injection as patient would like to proceed with conservative treatment at this time. The risks and benefits of the procedure were reviewed with the patient and patient gave verbal consent to continue with the procedure. Procedure: performed by Dr. Hodge Using sterile technique the left knee was thoroughly prepped with alcohol, and approximately 1 cc of Depo-Medrol 80mg/mL and 4 cc of 0.2% ropivacaine was injected without resistance into the medial tibial femoral joint space. The patient tolerated the procedure. Recommend knee cortisone injection as patient would like to proceed with conservative treatment at this time. The risks and benefits of the procedure were reviewed with the patient and patient gave verbal consent to continue with the procedure. Procedure: performed by Dr. Hodge Using sterile technique the Right knee was thoroughly prepped with alcohol, and approximately 1 cc of Depo-Medrol 80mg/mL and 4 cc of 0.2% ropivacaine was injected without resistance into the medial tibial femoral joint space. The patient tolerated the procedure. Office Procedures GNS Level of Care Nursing/Assessment Patient Status: Established Patient Nursing Assessment/Reassesment: Medication Reconciliation, Update PMH in EMR and Vital Signs Coordination of Care: Complex Care and Chronic Disease 1-5, Education Complex Pt/Fam, Consent,records obtained, informed consent, Results/Orders obtained and Staff clarify orders Special Needs: Language special needs Established Patient Charge Established Patient Point Assignment: 95 Established Patient Point Charge: EP Level 3 (80-115) Surgical Proc/IM SQ injection Minor Surgical Procedure: Yes (BILATERAL KNEE INJECTION) Medication Given Medication Given Medication Given: Yes Documented Dose Given: 2 Route: Infiitration Medication Given Medication Given Medication Given: Yes Documented Dose Given: 8 Route: Infiitration Office Meds methylprednisolone acetate 80 mg/mL suspension for injection Performing Provider: Ruddy Hodge MD Performing Location: [facility] Administered by: Ruddy Hodge MD on 03/06/25 14:40 Dose Route Admin Location Dispensed Lot Number Expiration Date Package [facility] [employer] 160 mg intra-articular KNEE 2 mL [id number] 11/11/26 [address]-8 [id number] [employer] ropivacaine (PF) 2 mg/mL (0.2 %) injection solution Performing Provider: Ruddy Hodge MD Performing Location: [facility] Administered by: Ruddy Hodge MD on 03/06/25 14:40 Dose Route Admin Location Dispensed Lot Number Expiration Date Package [facility] [employer] Security Agent 40 mL Infiltration KNEE 40 mL [id number] 08/11/26 4412-1499-50 [id number] [facility] [place] Int[facility] Visit Data Collection New Patient or Established: Established Patient (seen at [facility] within 3 years) Reason for Visit:: 3MTH KNEE Seen by Clinical Staff ONLY (RN/MA): No Hand Trucker Required: Yes PCP or OBGYN visit in last 3 months: Yes Hx Now: No Do You Feel Safe at Home: Yes Authorities Contacted: N/A Questionairres Past Medical History Past Medical History Have you ever been diagnosed with any of the following: Neurological Problems Cerebrovascular Accident (CVA): No Transient Ischemic Attacks (TIA): No Dementia: No Alzheimer's Disease: No Parkinson's Disease: No Brain Tumor: No Meningitis: No Seizures: No Epilepsy: No Multiple Sclerosis: No Cerebral Palsy: No Amyotrophic Lateral Sclerosis (ALS/Betsey Gehrig's): No Guillain-[place] Syndrome: No Spina Bifida: No Paralysis: Yes Peripheral Neuropathy: No Mead's Palsy: No Subdural Hematoma: No Migraine: No Head Trauma: No Spinal Cord Injury: No Traumatic Brain Injury: No Cardiology Problems Myocardial Infarction: No Cardiac Arrhythmia: No Atrial Fibrillation: No Angina: No Heart Murmur: No Coronary Artery Disease: No Atherosclerotic Heart Disease: No Peripheral Vascular Disease: No Hypercholesterolemia: No Aneurysm: No Congestive Heart Failure: No Congenital Heart Disease: No Valvular Heart Disease: No Rheumatic Fever: No Cardiomyopathy: No Edema: No Pericarditis: No Cellulitis: No Deep Vein Thrombosis: No Hypertension: Yes Hypotension: No Varicose Veins: No Respiratory Problems Chronic Obstructive Pulmonary Disease (COPD): No Asthma: No Bronchitis: No Emphysema: No Pneumonia: No Pulmonary Fibrosis: No Tuberculosis: No Pulmonary Embolism: No Pulmonary Edema: No Sleep Apnea: No CPAP Dependent: No Respiratory Aspiration: No Dyspnea: No Orthopnea: No Hx Cough: No Cough: No Wheezing: No Chest Deformities: No Smoking: No Smoking Cessation Counseling: No Smoking Exposure: No Tobacco Use: No Clubbing: No Exposure to Respiratory Irritants: No Intubation: No Stomache/Intestinal Problems Liver Cancer: No Hepatitis: No Cirrhosis: No Pancreatic Cancer: No Pancreatitis: No Celiac Disease: No Gall Bladder Disease: No Gastrointestinal Bleed: No Esophageal Varices: No Roman's Esophagus: No Colitis: No Ulcerative Colitis: No Diverticulitis: No Diverticulosis: No Ulcer: No Colorectal Cancer: No Irritable Bowel: No Crohn's Disease: No Obstructive Bowel: No Hiatal Hernia: No Hemorrhoids: No Gastroesophageal Reflux Disease: No Obesity: No Genital/Urinary Problems Renal Disease: No Kidney Stones: No Polycystic Kidney Disease: No Neurogenic Bladder: No Inguinal Hernia: No Dialysis: No Prostate Cancer: No Benign Prostatic Hyperplasia: No Reproductive Problems Breast Cancer: No Fibroids: No Genital Herpes: No Gonorrhea: No Syphilis: No Testicular Cancer: No Musculoskeletal Problems Muscular Dystrophy: No Myasthenia Gravis: No Marfan's Syndrome: No Bone Cancer: No Arthritis: No Rheumatoid Arthritis: No Osteoporosis: No Degenerative Disk Disease: No Gout: No Scoliosis: No Carpal Tunnel Syndrome: No Fibromyalgia: No Fractures: No Degenerative Joint Disease: No Osteomyelitis: No Poliovirus: No Head,Eye,Nose,Throat Problems Cataracts: No Glaucoma: No Blind: Yes Retinal Detachment: No Macular Degeneration: No Chronic Ear Infections: No Deafness: No Eye Prosthesis: Yes Endocrine Problems Diabetes Mellitus Type 1: No Diabetes Mellitus Type 2: No Hypoglycemia: No Dutton's Syndrome: No Erwin's Disease: No Hyperthyroidism: No Hypothyroidism: No Thyroid Cancer: No Parathyroid Disease: No Pituitary Disease: No Systemic Lupus Erythematosus: No Syndrome of Inappropriate Antidiuretic Hormone: No Adrenal Disease: No Graves' Disease: No Blood Problems Anemia: No Leukemia: No Hemophilia: No Thalassemia: No Sickle Cell Disease: No Clotting Problems: No Psychologic Problems Schizophrenia: No Recreational Drug Use: No Bipolar Disorder: No Depression: No Anxiety: No Behavior Problems: No Self-Mutilation: No Attention Deficit Disorder: No Attention Deficit Hyperactivity Disorder: No Depression: No Post Traumatic Stress Disorder: No Eating Disorder: No Other Problems Hospitalization: No Down Syndrome: No Autism: No Developmental Delay: No Cosmetic Surgery: No Shingles: No Falls: No Blood Transfusions: No Blood Transfusion Reaction: No Anesthesia Reactions: No Organ Transplant: No Chemotherapy: No Radiation Therapy: No Hyperbaric Therapy: No MRSA: No VRSA: No Vancomycin-Resistant Enterococci: No Human Immunodeficiency Virus (HIV): No Chicken Pox: No Measles: No Mumps: No Rubella ([place] Measles): No Pertussis: No Klebsiella Pneumoniae Carbapenemase Producing Bacteria: No Clostridium Difficile: No Hepatitis A: No Hepatitis B: No Hepatitis C: No Communicable Disease: No Cancer: No Lung Cancer: No Subjective Visit Visit for: follow up visit and knee (LEFT KNEE ) Immunization / Flu Flu Vaccine in the Last 12 Months: No Flu Vaccine Exclusion Criteria: Refused by Patient History of Present Illness Chief complaint: Bilateral knee pain Patient is a 63-year-old male with bilateral knee pain worse on the left. He would like cortisone injections today. The last injections have workedfor 3 months Personal History Red flag PMH: none Pain Pain level (0-10): 7 Pain duration: 1 WEEK Pain location: anterior Pain quality: sharp Pain timing: night Associated signs & symptoms: numbness, weakness and stiffness Ambulatory data Ambulatory device: none Walking distance (minutes): 10 Treatments Number of previous injections: 2 Improvement with previous injections: Yes Number of Physical Therapy sessions: 0 Improvement with NSAIDS: n/a Review of Systems Review of Systems: All systems negative unless otherwise noted in HPI.
[2025-03-06 13:35] VITALS: BP 102/65; PULSE 72; RESP 18; TEMP 35.8; O2SAT 96; BMI 26.7
== END 2025-03-06 13:34 | disposition home or self-care (01) ==
LOC: HODSRG 13:01
PROVIDERS: Supervising Provider Orthopaedic Surgery Adult Reconstructive Orthopaedic Surgery; Visit Provider Orthopaedic Surgery Adult Reconstructive Orthopaedic Surgery
DX: M17.12 Unilateral primary osteoarthritis, left knee (principal); M25.562 Pain in left knee; M25.561 Pain in right knee; I10 Essential (primary) hypertension
CPT/HCPCS: 20610; 99213; J1010; J2795; G0463